=== PATIENT | female | born 2000 | race Caucasian/White ===

== ENCOUNTER 2019-10-05 18:45 | Inpatient (IN) | payer MEDICAID ==
[2019-10-05] MEDS ORDERED: Calcium Carbonate 500 MG Tab.Chew PO PRN (19:56)
[2019-10-05] MEDS ORDERED: Acetaminophen 325 MG Tab PO PRN (19:56)
[2019-10-05] MEDS ORDERED: Sodium Chloride 0.9% 10 ML Syringe FLUSH PRN (19:56)
[2019-10-05] MEDS ORDERED: Nalbuphine 10 MG/ML Syringe IVPUSH PRN (19:56)
[2019-10-05] MEDS ORDERED: Ondansetron 4 MG/2 ML SDV IVPUSH PRN (19:56)
[2019-10-05] MEDS ORDERED: Oxytocin/Lactated Ringers 10 UNIT/1,000 ML BAG IV SCH ×2 (20:00)
[2019-10-05] MEDS ORDERED: ePHEDrine 50 MG/ML SDV IVPUSH PRN (20:43)
[2019-10-05] MEDS ORDERED: diphenhydrAMINE 50 MG/ML SDV IVPUSH PRN (20:43)
[2019-10-05] MEDS ORDERED: fentaNYL 100 MCG/2 ML SDV EPIDUR PRN (20:43)
[2019-10-05] MEDS ORDERED: Bupivacaine/fentaNYL/NS 100 ML Bag EPIDUR PRN (20:43)
--- NOTE | 2019-10-05 20:58 | PCM.PREANE ---
Preanesthetic Assessment - Anesthesia/Transfusion/Family Hx Anesthesia History: No Prior Anesthesia Transfusion History: No Prior Transfusion(s) - Review of Systems General: No Symptoms Pulmonary: No Symptoms Cardiovascular: No Symptoms Gastrointestinal: No Symptoms Neurological: No Symptoms Other: Reports: None - Physical Assessment Height: 1.6 m Weight: 66.723 kg ASA Class: 2 Mental Status: Alert & Oriented x3 Dentition: Reports: Normal Dentition Thyro-Mental Finger Breadths: 3 Mouth Opening Finger Breadths: 3 ROM/Head Extension: Full Lungs: Clear to Auscultation, Normal Respiratory Effort Cardiovascular: Regular Rate, Regular Rhythm - Lab Values: Laboratory Last Values WBC 7.38 K/mm3 (3.98-10.04) 10/05/19 20:18 RBC 4.41 M/mm3 (3.98-5.22) 10/05/19 20:18 Hgb 12.1 gm/dl (11.2-15.7) 10/05/19 20:18 Hct 38.0 % (34.1-44.9) 10/05/19 20:18 MCV 86.2 fl (79.4-94.8) D 10/05/19 20:18 MCH 27.4 pg (25.6-32.2) 10/05/19 20:18 MCHC 31.8 g/dl (32.2-35.5) L 10/05/19 20:18 RDW Std Deviation 44.6 fL (36.4-46.3) 10/05/19 20:18 Plt Count 223 K/mm3 (182-369) 10/05/19 20:18 MPV 12.7 fl (9.4-12.3) H 10/05/19 20:18 Neut % (Auto) 70.5 % (34.0-71.1) 10/05/19 20:18 Lymph % (Auto) 20.5 % (19.3-51.7) 10/05/19 20:18 [place] % (Auto) 7.2 % (4.7-12.5) 10/05/19 20:18 Eos % (Auto) 0.5 (0.7-5.8) L 10/05/19 20:18 Baso % (Auto) 0.4 % (0.1-1.2) 10/05/19 20:18 Neut # (Auto) 5.20 K/mm3 (1.56-6.13) 10/05/19 20:18 Lymph # (Auto) 1.51 K/mm3 (1.18-3.74) 10/05/19 20:18 [place] # (Auto) 0.53 K/mm3 (0.24-0.36) H 10/05/19 20:18 Eos # (Auto) 0.04 K/mm3 (0.04-0.36) 10/05/19 20:18 Baso # (Auto) 0.03 K/mm3 (0.01-0.08) 10/05/19 20:18 Membrane Rupture Positive H 10/05/19 19:00 - Allergies Allergies/Adverse Reactions: Allergies Allergy/AdvReac Type Severity Reaction Status Date / Time No Known Allergies Allergy Verified 10/05/19 18:53 - Acknowledgements Anesthesia Type Planned: Epidural Pt an Appropriate Candidate for the Planned Anesthesia: Yes Alternatives and Risks of Anesthesia Discussed w Pt/Guardian: Yes Pt/Guardian Understands and Agrees with Anesthesia Plan: Yes PreAnesthesia Questionnaire - CURRENT (IN HOUSE) MEDS Current Meds: Current Medications Acetaminophen (Tylenol) 650 mg PO Q4H PRN PRN Reason: Pain (Mild 1-3) and fever Calcium Carbonate/Glycine (Tums) 1,000 mg PO Q2H PRN PRN Reason: Indigestion Diphenhydramine HCl (Benadryl) 25 mg IVPUSH Q6H PRN PRN Reason: pruritis Ephedrine Sulfate (Ephedrine Sulfate) 5 mg IVPUSH ASDIRECTED PRN PRN Reason: Hypotension Fentanyl (Sublimaze) 100 mcg EPIDUR Q3H PRN PRN Reason: Pain Fentanyl/Bupivacaine HCl (Fentanyl/Bupivacaine/Ns 2 Mcg-0.125% 100 Ml) 0 ml EPIDUR CONTINUOUS PRN PRN Reason: Pain Lactated Ringer's (Ringers, Lactated) 1,000 mls @ 100 mls/hr IV ASDIRECTED CUBA Oxytocin/Lactated Ringer's (Pitocin In Lr 10 Units/1,000 Ml) 10 unit in 1,000 mls @ 12 mls/hr IV TITRATE CUBA; Protocol Oxytocin/Lactated Ringer's (Pitocin In Lr 10 Units/1,000 Ml) 10 unit in 1,000 mls @ 500 mls/hr IV .CONTINUOUS CUBA Nalbuphine HCl (Nubain) 10 mg IVPUSH Q2H PRN PRN Reason: Pain Ondansetron HCl (Zofran) 4 mg IVPUSH Q4H PRN PRN Reason: Nausea/Vomiting Sodium Chloride (Saline Flush) 10 ml FLUSH ASDIRECTED PRN PRN Reason: Keep Vein Open
[2019-10-05] MEDS: Lactated Ringers 1,000 ML IV SCH ×2 (21:11→22:38)
--- NOTE | 2019-10-05 21:12 | PCM.HP.2 ---
<Sriram Bertrand - Last Filed: 10/05/19 20:20> H&P History of Present Illness - General Date of Service: 10/05/19 Admit Problem/Dx: Admission Diagnosis/Problem Admission Diagnosis/Problem Source of Information: Patient History Limitations: Reports: No Limitations - History of Present Illness Initial Comments - Free Text/Narative: Ms. Ginette Rios is a pleasant 19 yo F who is a and ANIA of 10/09/2019. She presents to L&D around 1830 on 10/05/2019 at an estimated gestational age of 39-3 stating "at around 1615 my water broke". She felt the fluid, emptied her bladder, but continued to feel fluid. She recalls this to be clear-gumaro fluid with a tinge of pink to it. She denied any pain or contractions at the time her water broke. She admits to continuing to finish her home-cleaning until 30 min before she presented to &D she started to feel "contractions like she hasn't felt before." She describes these contractions as "a lot of pressure much lower than she has felt in the past" as well as pain in her dorsal abdomen that radiates to her back". She currently rates her pain a 6/10. Denies any spotting, bleeding, changes in her vision. Denies any hx of asthma, hypertension, blood disorders. She presents tonight with partner, Lacho. Ms. Rios has been seeing Dr. Mcintyre for her care. Upon her last visit 10/01/2019 and denies having any concerns or conditions being monitored during her . She was measured by Dr. Mcintyre to be 2cm/85%/soft/mid-ant/ -3 station. Tonight upon presentation she was measured by Dr. Mcintyre at 4cm/ 95% / -2 station. Ms. Rios desires an epidural for her , consented with Francois Hughes CRNA and performed @3148. GBS: negative (-) Blood type: A+, negative Ab screen Allergies: none Current medications: vitamin, iron (admits not on a regular basis, takes them for anemia) Labs: - Hgb: 12.1 - Hct: 38.0 - Amnisure: Positive (+) - Related Data Allergies/Adverse Reactions: Allergies Allergy/AdvReac Type Severity Reaction Status Date / Time No Known Allergies Allergy Verified 10/05/19 18:53 H&P Review of Systems - Review of Systems: Review Of Systems: See Below General: Reports: No Symptoms, Other (As of the last month, feeling very hot at night - denies fevers) HEENT: Reports: No Symptoms Pulmonary: Reports: No Symptoms Cardiovascular: Reports: No Symptoms Gastrointestinal: Reports: Nausea (Pt admits to having heartburn during her ; otherwise negative) Genitourinary: Reports: No Symptoms Musculoskeletal: Reports: No Symptoms Skin: Reports: No Symptoms Psychiatric: Reports: No Symptoms Neurological: Reports: No Symptoms Hematologic/Lymphatic: Reports: No Symptoms Immunologic: Reports: No Symptoms Exam - Exam Exam: See Below - Vital Signs Weight: 66.723 kg - Exam General: Alert, Oriented HEENT: Mucosa Moist & [place], Pupils Equal, Pupils Reactive Neck: Supple, Trachea Midline, Full Range of Motion. No: Lymphadenopathy Lungs: Clear to Auscultation, Normal Respiratory Effort Cardiovascular: Regular Rate, Regular Rhythm (No M,R,G's), Normal S1, Normal S2 Back Exam: Normal Inspection Extremities: Normal Inspection, Normal Range of Motion, Non-Tender, No Pedal Edema, Normal Capillary Refill Peripheral Pulses: 2+: Radial (L) (normal), Radial (R) (normal), Posterior Tibial (L) (normal), Posterior Tibial (R) (normal) Skin: Warm, Dry, Intact Neurological: Cranial Nerves Intact Neuro Extensive - Mental Status: Alert, Oriented x3, Normal Mood/Affect, Normal Cognition Neuro Extensive - Motor, Sensory, Reflexes: CN II-XII Intact (grossly intact) Psychiatric: Alert, Normal Affect, Normal Mood - Patient Data Lab Results Last 24 hrs: Laboratory Results - last 24 hr 10/05/19 Range/Units 19:00 Membrane Rupture Positive H Problem List Initiated/Reviewed/Updated: Yes Orders Last 24hrs: Active Orders 24 hr Category Date Time Status Patient Status [ADT] Routine ADT 10/05/19 18:54 Active Patient Status [ADT] Routine ADT 10/05/19 19:57 Active Activity as Tolerated [RC] PFP Care 10/05/19 19:57 Active Communication Order [RC] ASDIRECTED Care 10/05/19 19:57 Active Heart Tones [RC] ASDIRECTED Care 10/05/19 19:58 Active Non Stress Test [RC] PER UNIT ROUTINE Care 10/05/19 18:54 Active Non Stress Test [RC] PER UNIT ROUTINE Care 10/05/19 19:57 Active Notify Provider [RC] PFP Care 10/05/19 19:57 Active Notify Provider [RC] PRN Care 10/05/19 19:57 Active Peripheral IV Care [RC] . DIRECTED Care 10/05/19 19:58 Active Up ad Stefani [RC] ASDIRECTED Care 10/05/19 18:55 Active Vital Signs [RC] PER UNIT ROUTINE Care 10/05/19 18:54 Active Vital Signs [RC] PER UNIT ROUTINE Care 10/05/19 19:57 Active Regular Diet [DIET] Diet 10/05/19 Breakfast Active CBC WITH AUTO DIFF [HEME] Stat Lab 10/05/19 19:56 Ordered RAPID PLASMA REAGIN,RPR [CHEM] Routine Lab 10/05/19 19:57 Ordered Acetaminophen [Tylenol] Med 10/05/19 19:56 Active 650 mg PO Q4H PRN Calcium Carbonate [Tums] Med 10/05/19 19:56 Active 1,000 mg PO Q2H PRN Lactated Ringers [Ringers, Lactated] 1,000 ml Med 10/05/19 20:00 Active IV ASDIRECTED Nalbuphine [Nubain] Med 10/05/19 19:56 Active 10 mg IVPUSH Q2H PRN Ondansetron [Zofran] Med 10/05/19 19:56 Active 4 mg IVPUSH Q4H PRN Oxytocin/Lactated Ringers [Pitocin in LR 10 Units/1,000 Med 10/05/19 20:00 Active ML] 10 unit in 1,000 ml IV .CONTINUOUS Oxytocin/Lactated Ringers [Pitocin in LR 10 Units/1,000 Med 10/05/19 20:00 Active ML] 10 unit in 1,000 ml IV TITRATE Sodium Chloride 0.9% [Saline Flush] Med 10/05/19 19:56 Active 10 ml FLUSH ASDIRECTED PRN Electronic Heart Tones Ext w TOCO [WOMSER] Oth 10/05/19 19:57 Ordered Routine Electronic Heart Tones Internal [WOMSER] Per Unit Oth 10/05/19 19:57 Ordered Routine Peripheral IV Insertion Adult [OM.PC] Routine Oth 10/05/19 19:57 Ordered Resuscitation Status Routine Resus Stat 10/05/19 18:53 Ordered Medication Orders Acetaminophen (Tylenol) 650 mg PO Q4H PRN PRN Reason: Pain (Mild 1-3) and fever Calcium Carbonate/Glycine (Tums) 1,000 mg PO Q2H PRN PRN Reason: Indigestion Lactated Ringer's (Ringers, Lactated) 1,000 mls @ 100 mls/hr IV ASDIRECTED CUBA Oxytocin/Lactated Ringer's (Pitocin In Lr 10 Units/1,000 Ml) 10 unit in 1,000 mls @ 12 mls/hr IV TITRATE CUBA; Protocol Oxytocin/Lactated Ringer's (Pitocin In Lr 10 Units/1,000 Ml) 10 unit in 1,000 mls @ 500 mls/hr IV .CONTINUOUS CUBA Nalbuphine HCl (Nubain) 10 mg IVPUSH Q2H PRN PRN Reason: Pain Ondansetron HCl (Zofran) 4 mg IVPUSH Q4H PRN PRN Reason: Nausea/Vomiting Sodium Chloride (Saline Flush) 10 ml FLUSH ASDIRECTED PRN PRN Reason: Keep Vein Open Assessment/Plan Comment:: Labor and Delivery - Mortality Measure Prognosis:: Good <Wesley Mcintyre - Last Filed: 10/06/19 02:13> H&P History of Present Illness - General Admit Problem/Dx: Admission Diagnosis/Problem Admission Diagnosis/Problem Ginette is 19-year-old 2 para 0010 white female with an ANIA of 2019 place her at 39-4/7 weeks gestational age who is admitted for spontaneous rupture membranes in early labor. Exam - Vital Signs Vital Signs: Last Vital Signs Temp 36.7 C 10/05/19 18:54 Pulse 113 H 10/05/19 18:54 Resp 16 10/05/19 18:54 BP 127/82 10/05/19 18:54 Pulse Ox 99 10/05/19 18:54 - Patient Data Lab Results Last 24 hrs: Laboratory Results - last 24 hr 10/05/19 10/05/19 10/05/19 Range/Units 19:00 20:18 20:18 WBC 7.38 (3.98-10.04) K/mm3 RBC 4.41 (3.98-5.22) M/mm3 Hgb 12.1 (11.2-15.7) gm/dl Hct 38.0 (34.1-44.9) % MCV 86.2 D (79.4-94.8) fl MCH 27.4 (25.6-32.2) pg MCHC 31.8 L (32.2-35.5) g/dl RDW Std Deviation 44.6 (36.4-46.3) fL Plt Count 223 (182-369) K/mm3 MPV 12.7 H (9.4-12.3) fl Neut % (Auto) 70.5 (34.0-71.1) % Lymph % (Auto) 20.5 (19.3-51.7) % [place] % (Auto) 7.2 (4.7-12.5) % Eos % (Auto) 0.5 L (0.7-5.8) Baso % (Auto) 0.4 (0.1-1.2) % Neut # (Auto) 5.20 (1.56-6.13) K/mm3 Lymph # (Auto) 1.51 (1.18-3.74) K/mm3 [place] # (Auto) 0.53 H (0.24-0.36) K/mm3 Eos # (Auto) 0.04 (0.04-0.36) K/mm3 Baso # (Auto) 0.03 (0.01-0.08) K/mm3 Membrane Rupture Positive H RPR Non-reactive (NONREACTIVE) Result Diagrams: 10/05/19 20:18 Sepsis Event Note - Focused Exam Vital Signs: Vital Signs Temp Pulse Resp BP Pulse Ox 10/05/19 18:54 36.7 C 113 H 16 127/82 99 Date Exam was Performed: 10/06/19 Time Exam was Performed: 02:10 Problem List Initiated/Reviewed/Updated: Yes Orders Last 24hrs: Active Orders 24 hr Category Date Time Status Patient Status [ADT] Routine ADT 10/05/19 18:54 Active Patient Status [ADT] Routine ADT 10/05/19 19:57 Active Activity as Tolerated [RC] PFP Care 10/05/19 19:57 Active Communication Order [RC] ASDIRECTED Care 10/05/19 19:57 Active Heart Tones [RC] ASDIRECTED Care 10/05/19 19:58 Active Notify Provider [RC] ASDIRECTED Care 10/05/19 20:43 Active Notify Provider [RC] PFP Care 10/05/19 19:57 Active Notify Provider [RC] PRN Care 10/05/19 19:57 Active Peripheral IV Care [RC] . DIRECTED Care 10/05/19 19:58 Active Up ad Stefani [RC] ASDIRECTED Care 10/05/19 18:55 Active Vaccines to be Administered [RC] PER UNIT ROUTINE Care 10/05/19 21:35 Active Vital Signs [RC] PER UNIT ROUTINE Care 10/05/19 19:57 Active Regular Diet [DIET] Diet 10/05/19 Breakfast Active Acetaminophen [Tylenol] Med 10/05/19 19:56 Active 650 mg PO Q4H PRN Bupivacaine/fentaNYL/NS [fentaNYL/Bupivacaine/NS 2 MCG- Med 10/05/19 20:43 Active 0.125% 100 ML] 0 ml EPIDUR CONTINUOUS PRN Calcium Carbonate [Tums] Med 10/05/19 19:56 Active 1,000 mg PO Q2H PRN Lactated Ringers [Ringers, Lactated] 1,000 ml Med 10/05/19 20:00 Active IV ASDIRECTED Nalbuphine [Nubain] Med 10/05/19 19:56 Active 10 mg IVPUSH Q2H PRN Ondansetron [Zofran] Med 10/05/19 19:56 Active 4 mg IVPUSH Q4H PRN Oxytocin/Lactated Ringers [Pitocin in LR 10 Units/1,000 Med 10/05/19 20:00 Active ML] 10 unit in 1,000 ml IV .CONTINUOUS Oxytocin/Lactated Ringers [Pitocin in LR 10 Units/1,000 Med 10/05/19 20:00 Active ML] 10 unit in 1,000 ml IV TITRATE Sodium Chloride 0.9% [Saline Flush] Med 10/05/19 19:56 Active 10 ml FLUSH ASDIRECTED PRN diphenhydrAMINE [Benadryl] Med 10/05/19 20:43 Active 25 mg IVPUSH Q6H PRN ePHEDrine [ePHEDrine sulfate] Med 10/05/19 20:43 Active 5 mg IVPUSH ASDIRECTED PRN fentaNYL [Sublimaze] Med 10/05/19 20:43 Active 100 mcg EPIDUR Q3H PRN Electronic Heart Tones Ext w TOCO [WOMSER] Oth 10/05/19 19:57 Ordered Routine Electronic Heart Tones Internal [WOMSER] Per Unit Oth 10/05/19 19:57 Ordered Routine Peripheral IV Insertion Adult [OM.PC] Routine Oth 10/05/19 19:57 Ordered Resuscitation Status Routine Resus Stat 10/05/19 18:53 Ordered Medication Orders Acetaminophen (Tylenol) 650 mg PO Q4H PRN PRN Reason: Pain (Mild 1-3) and fever Calcium Carbonate/Glycine (Tums) 1,000 mg PO Q2H PRN PRN Reason: Indigestion Diphenhydramine HCl (Benadryl) 25 mg IVPUSH Q6H PRN PRN Reason: pruritis Ephedrine Sulfate (Ephedrine Sulfate) 5 mg IVPUSH ASDIRECTED PRN PRN Reason: Hypotension Fentanyl (Sublimaze) 100 mcg EPIDUR Q3H PRN PRN Reason: Pain Last Admin: 10/05/19 21:20 Dose: 100 mcg Fentanyl/Bupivacaine HCl (Fentanyl/Bupivacaine/Ns 2 Mcg-0.125% 100 Ml) 0 ml EPIDUR CONTINUOUS PRN PRN Reason: Pain Last Admin: 10/05/19 21:22 Dose: 100 ml Lactated Ringer's (Ringers, Lactated) 1,000 mls @ 100 mls/hr IV ASDIRECTED CUBA Last Admin: 10/05/19 22:38 Dose: 100 mls/hr Infusion: 10/05/19 22:38 Dose: 100 mls/hr Admin: 10/05/19 21:11 Dose: 100 mls/hr Oxytocin/Lactated Ringer's (Pitocin In Lr 10 Units/1,000 Ml) 10 unit in 1,000 mls @ 12 mls/hr IV TITRATE CUBA; Protocol Oxytocin/Lactated Ringer's (Pitocin In Lr 10 Units/1,000 Ml) 10 unit in 1,000 mls @ 500 mls/hr IV .CONTINUOUS CUBA Nalbuphine HCl (Nubain) 10 mg IVPUSH Q2H PRN PRN Reason: Pain Ondansetron HCl (Zofran) 4 mg IVPUSH Q4H PRN PRN Reason: Nausea/Vomiting Last Admin: 10/05/19 22:39 Dose: 4 mg Sodium Chloride (Saline Flush) 10 ml FLUSH ASDIRECTED PRN PRN Reason: Keep Vein Open Assessment/Plan Comment:: 1. 39-4/7 week intrauterine , spontaneous rupture membranes, early active labor 2. Low risk 3. Desires epidural in labor 4. Group B strep negative 5. Patient plans to breast-feed. Plan: 1. Anticipate normal spontaneous vaginal delivery 2. Epidural in labor when necessary per patient desire 3. Routine labor care
[2019-10-05] MEDS ORDERED: Lidocaine 1% 2 ML ONE (21:27)
[2019-10-05] MEDS ORDERED: Lidocaine 1% 6 ML ONE (21:28)
[2019-10-05] MEDS ORDERED: Diphtheria,Pertussis(Acell),Tetanus Vaccine 0.5 ML Syringe IM ONE (21:35)
[2019-10-06] MEDS ORDERED: Lidocaine 1% 50 ML MDV ONE (01:36)
--- NOTE | 2019-10-06 02:20 | PCM.SN ---
- Free Text/Narrative Note: Delivery note: Ginette is 19-year-old 2 para 0010 white female with an ANIA of 2019 place her at 39-4/7 weeks gestational age who is admitted for spontaneous rupture membranes in early labor.Ginette is a 19-year-old 2 now para 1011 female who noted on the evening of 10/05/2019 with rupture membranes which occurred at approximately 1600 hrs. on the same day. She is at 39-3/7 weeks upon admission for early active labor. ANIA is set at 10/09/2019. Patient slowly but steadily progressed to complete cervical dilation by approximately oh 1230 hrs. she had an epidural placed for labor and analgesia. She delivered a viable, salguero, male infant named Chong at 0131 hrs. on . The baby weighed 3160 g (6 pounds 15.5 ounces), length of 20.0 inches and scores of 8 and 9. The baby delivered in a right occiput anterior position. The baby was placed on mom's abdomen immediately after delivery. Nose and mouth were bulb suctioned. Pitocin was increased to 500 mL/h to facilitate increase in uterine tone and decreased likelihood of bleeding. Patient had a right labial laceration and a small second-degree perineal laceration. The area of the laceration was infiltrated with lidocaine 1% approximately 15 mL total. These lacerations were both repaired with 3-0 Monocryl suture. Patient tolerated this very well. The placenta delivered in a Layne presentation, appeared intact and complete and was discarded per patient desire. Estimated blood loss was 100 mL. Patient plans to breast-feed. Duration: Good.
[2019-10-06] MEDS ORDERED: Acetaminophen 325 MG Tab PO PRN (02:32)
[2019-10-06] MEDS: Benzocaine/Menthol 20%-0.5% Spray 56 GM Canister TOP PRN (04:04)
[2019-10-06] MEDS: Docusate Sodium 100 MG Cap PO PRN ×2 (04:05→20:11)
[2019-10-06] MEDS: Ibuprofen 600 MG Tab PO PRN ×3 (04:05→20:11)
[2019-10-06] MEDS: Witch Hazel Medicated Pads 40/Jar TOP PRN (04:05)
--- NOTE | 2019-10-06 08:04 | PCM48HPAN ---
Post Anesthesia Note - EVALUATION WITHIN 48HRS OF ANESTHETIC Vital Signs in Normal Range: Yes Patient Participated in Evaluation: Yes Respiratory Function Stable: Yes Airway Patent: Yes Cardiovascular Function Stable: Yes Hydration Status Stable: Yes Pain Control Satisfactory: Yes Nausea and Vomiting Control Satisfactory: Yes Mental Status Recovered: Yes Vital Signs: Last Vital Signs Temp 98.1 F 10/05/19 18:54 Pulse 110 H 10/06/19 03:31 Resp 16 10/05/19 18:54 BP 93/45 L 10/06/19 03:31 Pulse Ox 98 10/05/19 21:18
[2019-10-06] MEDS: Prenatal Multivitamin with Calcium/Folic Acid/Iron Tab PO SCH (08:50)
[2019-10-07] MEDS: Ibuprofen 600 MG Tab PO PRN (05:07)
[2019-10-07] MEDS: Prenatal Multivitamin with Calcium/Folic Acid/Iron Tab PO SCH (08:29)
--- NOTE | 2019-10-07 08:55 | PCM.SN ---
- Free Text/Narrative Note: note: Patient is doing well in the period. Minimal lochia, voiding well, ambulated without problems. Nursing less than optimal at this time. Patient is afebrile, vital signs are stable Abdomen is flat, soft, uterus is below the umbilicus and is firm and nontender. Legs are nontender. Assessment: recovery going well. Plan: Routine care. Patient be discharged home within the next 24-48 hours.
[2019-10-07] MEDS: Witch Hazel Medicated Pads 40/Jar TOP PRN (14:36)
[2019-10-07] MEDS: Benzocaine/Menthol 20%-0.5% Spray 56 GM Canister TOP PRN (14:36)
--- NOTE | 2019-10-07 18:16 | PCM.DCSUM1 ---
Discharge Summary - Hospital Course Free Text/Narrative:: Ginette is 19-year-old 2 para 0010 white female with an ANIA of 2019 place her at 39-4/7 weeks gestational age who is admitted for spontaneous rupture membranes in early labor.Ginette is a 19-year-old 2 now para 1011 female who noted on the evening of 10/05/2019 with rupture membranes which occurred at approximately 1600 hrs. on the same day. She is at 39-3/7 weeks upon admission for early active labor. ANIA is set at 10/09/2019. Patient slowly but steadily progressed to complete cervical dilation by approximately oh 1230 hrs. she had an epidural placed for labor and analgesia. She delivered a viable, salguero, male infant named Chong at 0131 hrs. on . The baby weighed 3160 g (6 pounds 15.5 ounces), length of 20.0 inches and scores of 8 and 9. The baby delivered in a right occiput anterior position. The baby was placed on mom's abdomen immediately after delivery. Nose and mouth were bulb suctioned. Pitocin was increased to 500 mL/h to facilitate increase in uterine tone and decreased likelihood of bleeding. Patient had a right labial laceration and a small second-degree perineal laceration. The area of the laceration was infiltrated with lidocaine 1% approximately 15 mL total. These lacerations were both repaired with 3-0 Monocryl suture. Patient tolerated this very well. The placenta delivered in a Layne presentation, appeared intact and complete and was discarded per patient desire. Estimated blood loss was 100 mL. Patient plans to breast-feed. patient is done well. She is and doing well. She has had some difficulty with nursing but in general is going well. She wishes to continue. She is ready for discharge home. Diagnosis: Stroke: No - Discharge Data Discharge Date: 10/07/19 Discharge Disposition: Home, Self-Care 01 Condition: Good - Referral to Home Health Primary Care Physician: Wesley Mcintyre MD - Patient Instructions Diet: Regular Diet as Tolerated (Nursing diet with increase calories and calcium as recommended) Activity: As Tolerated (No intercourse or tampons until bleeding resolves) Driving: May Drive Today Showering/Bathing: May Shower (May take a shower) Notify Provider of: Fever, Increased Pain, Swelling and Redness, Nausea and/or Vomiting - Discharge Plan Home Medications: Home Meds Vit #76/Iron,Carb/Fa [Pnv 29-1 Tablet] 1 each PO DAILY 10/05/19 [ History] Acetaminophen [Tylenol] 650 mg PO Q4H PRN tablet 10/07/19 [Rx] Ibuprofen [Motrin] 600 mg PO Q4H PRN tablet 10/07/19 [Rx] Referrals: Wesley Mcintyre MD [Primary Care Provider] - (Return to [facility] weeks.) - Discharge Summary/Plan Comment DC Time >30 min.: No Discharge Summary/Plan Comment: Discharge instructions: 1. Discharge home 2. Diet, activity and follow-up discussed with patient. Recommend nursing diet with increased calories and calcium. 3. Precautions given concern increased pain, bleeding, temperature, signs/ symptoms of DVT/PE. 4. Medications per home medication was printed, discussed with and given to the patient. 5. Return to clinic-Dr. Mcintyre[facility] in 2 weeks. Diagnosis: Term -delivered Condition: Good - Patient Data Vitals - Most Recent: Last Vital Signs Temp 37.1 C 10/07/19 15:41 Pulse 109 H 10/07/19 15:41 Resp 16 10/07/19 15:41 BP 123/77 10/07/19 15:41 Pulse Ox 97 10/07/19 15:41 Weight - Most Recent: 66.723 kg I&O - Last 24 hours: Intake & Output 10/07/19 10/07/19 10/07/19 06:59 14:59 22:59 Intake Total 120 Balance 120 Med Orders - Current: Current Medications Acetaminophen (Tylenol) 650 mg PO Q4H PRN PRN Reason: mild pain or fever Benzocaine/Menthol (Dermoplast Pain Relief [place]) 0 gm TOP ASDIRECTED PRN PRN Reason: Perineal Comfort Measure Last Admin: 10/07/19 14:36 Dose: 1 canister Docusate Sodium (Colace) 100 mg PO BID PRN PRN Reason: Constipation Last Admin: 10/06/19 20:11 Dose: 100 mg Ibuprofen (Motrin) 600 mg PO Q4H PRN PRN Reason: Mild pain or fever Last Admin: 10/07/19 05:07 Dose: 600 mg Prenat Multivit/[place]/Iron/Folic Ac ( Plus Iron) 1 each PO DAILY CUBA Last Admin: 10/07/19 08:29 Dose: 1 each David Rubio (Tucks) 1 pad TOP ASDIRECTED PRN PRN Reason: Pain Last Admin: 10/07/19 14:36 Dose: 1 container Discontinued Medications Acetaminophen (Tylenol) 650 mg PO Q4H PRN PRN Reason: Pain (Mild 1-3) and fever Calcium Carbonate/Glycine (Tums) 1,000 mg PO Q2H PRN PRN Reason: Indigestion Diphenhydramine HCl (Benadryl) 25 mg IVPUSH Q6H PRN PRN Reason: pruritis Diphtheria/Tetanus/Acell Pertussis (Adacel) 0.5 ml IM .ONCE ONE Stop: 10/05/19 21:36 Ephedrine Sulfate (Ephedrine Sulfate) 5 mg IVPUSH ASDIRECTED PRN PRN Reason: Hypotension Fentanyl (Sublimaze) 100 mcg EPIDUR Q3H PRN PRN Reason: Pain Last Admin: 10/05/19 21:20 Dose: 100 mcg Fentanyl/Bupivacaine HCl (Fentanyl/Bupivacaine/Ns 2 Mcg-0.125% 100 Ml) 0 ml EPIDUR CONTINUOUS PRN PRN Reason: Pain Last Admin: 10/05/19 21:22 Dose: 100 ml Lactated Ringer's (Ringers, Lactated) 1,000 mls @ 100 mls/hr IV ASDIRECTED CUBA Last Admin: 10/05/19 22:38 Dose: 100 mls/hr Oxytocin/Lactated Ringer's (Pitocin In Lr 10 Units/1,000 Ml) 10 unit in 1,000 mls @ 12 mls/hr IV TITRATE CUBA; Protocol Oxytocin/Lactated Ringer's (Pitocin In Lr 10 Units/1,000 Ml) 10 unit in 1,000 mls @ 500 mls/hr IV .CONTINUOUS CUBA Last Admin: 10/06/19 01:35 Dose: 500 mls/hr Lidocaine HCl (Xylocaine-Mpf 1%) Confirm Administered Dose 2 mls @ as directed .ROUTE .STK-MED ONE Stop: 10/05/19 21:28 Lidocaine HCl (Xylocaine-Mpf 1%) Confirm Administered Dose 6 mls @ as directed .ROUTE .STK-MED ONE Stop: 10/05/19 21:29 Lidocaine HCl (Xylocaine 1%) Confirm Administered Dose 50 ml .ROUTE .VoxPopMe ONE Stop: 10/06/19 01:37 Last Admin: 10/06/19 01:40 Dose: 20 ml Nalbuphine HCl (Nubain) 10 mg IVPUSH Q2H PRN PRN Reason: Pain Ondansetron HCl (Zofran) 4 mg IVPUSH Q4H PRN PRN Reason: Nausea/Vomiting Last Admin: 10/05/19 22:39 Dose: 4 mg Sodium Chloride (Saline Flush) 10 ml FLUSH ASDIRECTED PRN PRN Reason: Keep Vein Open
== END 2019-10-07 19:10 | disposition home or self-care (01) | DRG 807 ==
LOC: JD.OB 18:45 → JD.OBCHECK 18:45 → JD.OB 19:57 → OBSVTOIN 10-06 01:31 → JD.OB 10-06 01:31
PROVIDERS: ADMIT Obstetrics & Gynecology; ATTEND Obstetrics & Gynecology
PROC: 10E0XZZ Delivery of Products of Conception, External Approach (ICD-10-PCS; principal; 2019-10-06)
PROC: 0KQM0ZZ Repair Perineum Muscle, Open Approach (ICD-10-PCS; 2019-10-06)
PROC: 3E0R3BZ Introduction of Anesthetic Agent into Spinal Canal, Percutaneous Approach (ICD-10-PCS; 2019-10-06)
PROC: 00HU33Z Insertion of Infusion Device into Spinal Canal, Percutaneous Approach (ICD-10-PCS; 2019-10-06)
DX: O70.1 Second degree perineal laceration during delivery (principal); Z37.0 Single live birth; Z3A.39 39 weeks gestation of pregnancy
CPT/HCPCS: 01967; 36415; 51702; 59025; 59409; 84112; 85025; 86592; A9270-GY; J2001; J2405; J2590; J3010; J7120

== ENCOUNTER 2021-04-20 08:57 | Inpatient (IN) | payer MEDICAID ==
[2021-04-20] MEDS ORDERED: Ondansetron 4 MG/2 ML SDV IVPUSH PRN (09:34)
[2021-04-20] MEDS ORDERED: Sodium Chloride 0.9% 10 ML Syringe FLUSH PRN (09:34)
[2021-04-20] MEDS ORDERED: Nalbuphine 10 MG/1 ML Vial IVPUSH PRN (09:34)
[2021-04-20] MEDS ORDERED: Citric Acid/Sodium Citrate Solution 30 ML Cup PO ONE (09:38)
[2021-04-20] MEDS ORDERED: Metoclopramide 10 MG/2 ML SDV IVPUSH ONE (09:38)
[2021-04-20] MEDS ORDERED: Azithromycin 500 MG in Sodium Chloride 0.9% 250 ML IV STA (09:41)
[2021-04-20] MEDS ORDERED: ceFAZolin 2 GM in Premix Bag 1 BAG IV ONE (09:43)
[2021-04-20] MEDS ORDERED: Lactated Ringers 1,000 ML IV SCH (09:45)
[2021-04-20] MEDS ORDERED: Oxytocin/Lactated Ringers 10 UNIT/1,000 ML BAG IV SCH ×3 (09:45→12:53)
[2021-04-20] MEDS ORDERED: Propofol 200 MG/20 ML SDV ONE (09:54)
[2021-04-20] MEDS ORDERED: fentaNYL 100 MCG/2 ML SDV ONE ×2 (10:02→10:13)
[2021-04-20] MEDS ORDERED: Succinylcholine/Sod PF 100 MG/5 ML SYRINGE IV ONE (10:02)
[2021-04-20] MEDS ORDERED: ceFAZolin 1 GM Vial ONE (10:04)
[2021-04-20] MEDS ORDERED: Oxytocin 10 Units/1 ML SDV ONE (10:04)
[2021-04-20] MEDS ORDERED: Ondansetron 4 MG/2 ML SDV ONE (10:05)
[2021-04-20] MEDS ORDERED: HYDROmorphone 0.5 MG/0.5 ML Syringe ONE ×2 (10:14→10:34)
[2021-04-20] MEDS ORDERED: Lactated Ringers 1,000 ML ONE (10:16)
[2021-04-20] MEDS ORDERED: Midazolam 1 MG/ML 2 ML SDV ONE (10:30)
[2021-04-20] MEDS ORDERED: Bupivacaine 0.5% 30 ML SDV ONE (10:35)
[2021-04-20] MEDS ORDERED: fentaNYL 100 MCG/2 ML SDV IVPUSH PRN (10:38)
[2021-04-20] MEDS ORDERED: HYDROmorphone 0.5 MG/0.5 ML Syringe IVPUSH PRN (10:38)
--- NOTE | 2021-04-20 11:17 | PCM.PREANE ---
Preanesthetic Assessment - Procedure Proposed Procedure: Emergency section - Anesthesia/Transfusion/Family Hx Anesthesia History: No Prior Anesthesia Transfusion History: No Prior Transfusion(s) - Review of Systems General: No Symptoms Pulmonary: No Symptoms Cardiovascular: No Symptoms Gastrointestinal: No Symptoms Neurological: No Symptoms Other: Reports: None - Physical Assessment Vital Signs: Last Vital Signs Temp 97.3 F 04/20/21 11:00 Pulse 71 04/20/21 11:00 Resp 12 04/20/21 11:00 BP 113/63 04/20/21 11:00 Pulse Ox 100 04/20/21 11:00 ASA Class: 2E Mental Status: Alert & Oriented x3 Airway Class: Mallampati = 2 Dentition: Reports: Normal Dentition Thyro-Mental Finger Breadths: 3 Mouth Opening Finger Breadths: 3 ROM/Head Extension: Full Lungs: Clear to Auscultation, Normal Respiratory Effort Cardiovascular: Regular Rate, Regular Rhythm - Lab Values: Laboratory Last Values WBC 7.16 K/mm3 (3.98-10.04) 04/20/21 09:45 RBC 3.64 M/mm3 (3.98-5.22) L 04/20/21 09:45 Hgb 11.0 gm/dl (11.2-15.7) L 04/20/21 09:45 Hct 33.9 % (34.1-44.9) L 04/20/21 09:45 MCV 93.1 fl (79.4-94.8) D 04/20/21 09:45 MCH 30.2 pg (25.6-32.2) 04/20/21 09:45 MCHC 32.4 g/dl (32.2-35.5) 04/20/21 09:45 RDW Std Deviation 47.2 fL (36.4-46.3) H 04/20/21 09:45 Plt Count 126 K/mm3 (182-369) L D 04/20/21 09:45 MPV 13.3 fl (9.4-12.3) H 04/20/21 09:45 Neut % (Auto) 72.9 % (34.0-71.1) H 04/20/21 09:45 Lymph % (Auto) 19.3 % (19.3-51.7) 04/20/21 09:45 [place] % (Auto) 6.6 % (4.7-12.5) 04/20/21 09:45 Eos % (Auto) 0.4 (0.7-5.8) L 04/20/21 09:45 Baso % (Auto) 0.1 % (0.1-1.2) 04/20/21 09:45 Neut # (Auto) 5.22 K/mm3 (1.56-6.13) 04/20/21 09:45 Lymph # (Auto) 1.38 K/mm3 (1.18-3.74) 04/20/21 09:45 [place] # (Auto) 0.47 K/mm3 (0.24-0.36) H 04/20/21 09:45 Eos # (Auto) 0.03 K/mm3 (0.04-0.36) L 04/20/21 09:45 Baso # (Auto) 0.01 K/mm3 (0.01-0.08) 04/20/21 09:45 Blood Type A POSITIVE 04/20/21 09:45 Gel Antibody Screen Negative 04/20/21 09:45 - Allergies Allergies/Adverse Reactions: Allergies Allergy/AdvReac Type Severity Reaction Status Date / Time No Known Allergies Allergy Verified 10/05/19 18:53 - Acknowledgements Anesthesia Type Planned: General Anesthesia Pt an Appropriate Candidate for the Planned Anesthesia: Yes Alternatives and Risks of Anesthesia Discussed w Pt/Guardian: Yes Pt/Guardian Understands and Agrees with Anesthesia Plan: Yes Additional Comments: Due to an extreme urgency of the procedure the assessment was done based on physician and nursing staff report. 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: - HOME MEDS Home Medications: Home Meds Vit #76/Iron,Carb/Fa [Pnv 29-1 Tablet] 1 each PO DAILY 10/05/19 [History] Acetaminophen [Tylenol] 650 mg PO Q4H PRN tablet 10/07/19 [Rx] Ibuprofen [Motrin] 600 mg PO Q4H PRN tablet 10/07/19 [Rx] - CURRENT (IN HOUSE) MEDS Current Meds: Current Medications Fentanyl (Fentanyl 100 Mcg/2 Ml Sdv) 100 mcg IVPUSH Q5M PRN PRN Reason: Pain Hydromorphone HCl (Hydromorphone 0.5 Mg/0.5 Ml Syringe) 0.5 mg IVPUSH Q10M PRN PRN Reason: Pain (severe 7-10) Oxytocin/Lactated Ringer's (Pitocin In Lr 10 Units/1,000 Ml) 10 unit in 1,000 mls @ 100 mls/hr IV .CONTINUOUS CUBA Oxytocin/Lactated Ringer's (Pitocin In Lr 10 Units/1,000 Ml) 10 unit in 1,000 mls @ 12 mls/hr IV TITRATE CUBA; Protocol Lactated Ringer's (Ringers, Lactated) 1,000 mls @ 100 mls/hr IV ASDIRECTED CUBA Nalbuphine HCl (Nalbuphine 10 Mg/1 Ml Vial) 10 mg IVPUSH Q2H PRN PRN Reason: Pain Ondansetron HCl (Ondansetron 4 Mg/2 Ml Sdv) 4 mg IVPUSH Q4H PRN PRN Reason: Nausea/Vomiting Sodium Chloride (Sodium Chloride 0.9% 10 Ml Syringe) 10 ml FLUSH ASDIRECTED PRN PRN Reason: Keep Vein Open Discontinued Medications Bupivacaine HCl (Bupivacaine 0.5% 30 Ml Sdv) Confirm Administered Dose 30 ml .ROUTE .STK-MED ONE Stop: 04/20/21 10:36 Cefazolin Sodium (Cefazolin 1 Gm Vial) Confirm Administered Dose 2 gm .ROUTE .STK-MED ONE Stop: 04/20/21 10:05 Citric Acid/Sodium Citrate (Citric Acid/Sodium Citrate Solution 30 Ml Cup) 30 ml PO ONETIME ONE Stop: 04/20/21 09:39 Fentanyl (Fentanyl 100 Mcg/2 Ml Sdv) Confirm Administered Dose 100 mcg .ROUTE .STK-MED ONE Stop: 04/20/21 10:03 Fentanyl (Fentanyl 100 Mcg/2 Ml Sdv) Confirm Administered Dose 100 mcg .ROUTE .STK-MED ONE Stop: 04/20/21 10:14 Hydromorphone HCl (Hydromorphone 0.5 Mg/0.5 Ml Syringe) Confirm Administered Dose 0.5 mg .ROUTE .STK-MED ONE Stop: 04/20/21 10:15 Hydromorphone HCl (Hydromorphone 0.5 Mg/0.5 Ml Syringe) Confirm Administered Dose 0.5 mg .ROUTE .STK-MED ONE Stop: 04/20/21 10:35 Azithromycin 500 mg/ Sodium (Chloride) 250 mls @ 250 mls/hr IV ONETIME STA Stop: 04/20/21 10:40 Cefazolin Sodium/Dextrose 2 gm (/ Premix) 50 mls @ 100 mls/hr IV ONETIME ONE Stop: 04/20/21 10:12 Lactated Ringer's (Ringers, Lactated) Confirm Administered Dose 1,000 mls @ as directed .ROUTE .STK-MED ONE Stop: 04/20/21 10:17 Metoclopramide HCl (Metoclopramide 10 Mg/2 Ml Sdv) 10 mg IVPUSH ONETIME ONE Stop: 04/20/21 09:39 Midazolam HCl (Midazolam 1 Mg/Ml 2 Ml Sdv) Confirm Administered Dose 2 mg .ROUTE .STK-MED ONE Stop: 04/20/21 10:31 Miscellaneous Medication (Phenylephrine Hcl In 0.9% Nacl 1 Mg/10 Ml Syringe) Confirm Administered Dose 1 mg .ROUTE .STK-MED ONE Stop: 04/20/21 10:12 Miscellaneous Medication (Phenylephrine Hcl In 0.9% Nacl 1 Mg/10 Ml Syringe) Confirm Administered Dose 1 mg .ROUTE .STK-MED ONE Stop: 04/20/21 10:22 Ondansetron HCl (Ondansetron 4 Mg/2 Ml Sdv) Confirm Administered Dose 8 mg .ROUTE .STK-MED ONE Stop: 04/20/21 10:06 Oxytocin (Oxytocin 10 Units/1 Ml Sdv) Confirm Administered Dose 20 unit .ROUTE .STK-MED ONE Stop: 04/20/21 10:05 Propofol (Propofol 200 Mg/20 Ml Sdv) Confirm Administered Dose 200 mg .ROUTE .STK-MED ONE Stop: 04/20/21 09:55
--- NOTE | 2021-04-20 11:17 | PCM.POSTAN ---
POST ANESTHESIA ASSESSMENT - MENTAL STATUS Mental Status: Somnolent - VITAL SIGNS Vital Signs: Last Vital Signs Temp 97.3 F 04/20/21 11:00 Pulse 71 04/20/21 11:00 Resp 12 04/20/21 11:00 BP 113/63 04/20/21 11:00 Pulse Ox 100 04/20/21 11:00 - RESPIRATORY Respiratory Status: Respiratory Rate WNL, Airway Patent, O2 Saturation Stable, Supplemental Oxygen - CARDIOVASCULAR CV Status: Pulse Rate WNL, Blood Pressure Stable - GASTROINTESTINAL GI Status: No Symptoms - PAIN Pain Score: 0 - POST OP HYDRATION Hydration Status: Adequate & Stable
--- NOTE | 2021-04-20 12:05 | PCM.LDHP ---
L&D History of Present Illness - General Date of Service: 04/20/21 Admit Problem/Dx: Patient Status Order with Admit Dx/Problem 04/20/21 09:35 Patient Status [ADT] Routine Admission Diagnosis/Problem Admission Diagnosis/Problem Source of Information: Patient History Limitations: Reports: No Limitations - History of Present Illness Introduction:: Ginette Rios is a 20-year-old -0-1-1 female at 39 weeks 6 days (ANIA 04/21/2021) by early with spontaneous rupture of membranes. She states that she had a large gush of fluid at around 7:30 AM and then about 15 minutes later started have contractions. After the contractions began she started having to have bright red bleeding coming from the vagina. She had not really felt baby move since her water had broken. She states that the contractions were several minutes apart when she was having them. They were not overly strong. Timing/Duration: Reports: sudden onset (With large gush of fluid that occurred at around 7:30 AM, with bleeding that occurred vaginally after the initial gush of fluid) Location, : Reports: Lower back, Pelvic Quality: Reports: Ache Severity: Mild Pain Score: 0 Associated Symptoms: Reports: vaginal bleeding, vaginal fluid. Denies: vaginal discharge Present Illness Comments:: Ginette Rios is a 20-year-old -0-1-1 female who presented at 39 weeks 6 days (ANIA 04/21/2021) with spontaneous rupture membranes and bright red bleeding vaginally. She had routine care with Dr. Mcintyre starting at 35 weeks gestational age after having transfer of care from [place]. She denies any problems or issues with this . She had a normal anatomy ultrasound. She declined Tdap vaccine during . Her care has been with Dr. Mcintyre and has been uncomplicated. 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 G1: 12/27/2018: SAB, 10 weeks G2: 10/06/2019, 39 weeks 4 days, , 6 pounds 15 ounces, male infant, no complications G3: Current labs Blood type: A+ Antibody screen: Negative First trimester hematocrit/hemoglobin: 36.2%/12.2 on 11/21/2020 Platelets: 256 on 11/22/2019 Urine culture: Negative Rubella status: Immune Hepatitis B surface antigen: Negative RPR: Negative Hepatitis C: Negative HIV: Negative Gonorrhea: Negative Chlamydia: Negative Anatomy ultrasound: Normal anatomy, no abnormalities, no evidence of placenta previa One hour glucose tolerance test: 108 Second trimester hematocrit/hemoglobin: 35.5%/12.3 on 01/18/2021 Platelets: 235 on 01/18/2021 GBS status: Negative - Related Data Allergies/Adverse Reactions: Allergies Allergy/AdvReac Type Severity Reaction Status Date / Time No Known Allergies Allergy Verified 10/05/19 18:53 Home Medications: Home Meds Vit #76/Iron,Carb/Fa [Pnv 29-1 Tablet] 1 each PO DAILY 10/05/19 [History] Acetaminophen [Tylenol] 650 mg PO Q4H PRN tablet 10/07/19 [Rx] Past Medical History - Past Health History Medical/Surgical History: Denies 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/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 History 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: : 3 Para: 1 Neurological History: Reports: Migraines Social & Family History - Family History Family Medical History: No Pertinent Family History - Tobacco Use Tobacco Use Status *Q: Never Tobacco User Tobacco Use Within Last Twelve Months: No - Tobacco Core Measures Tobacco Use/Smoking Within Last 30 Days: No Smokeless Tobacco Use in Last 30 Days: No - Alcohol Use Alcohol Use History: No - Recreational Drug Use Recreational Drug Use: No Drug Use in Last 12 Months: No - Living Situation & Occupation Living situation: Reports: Single, with Significant Other, with Family H&P Review of Systems - Review of Systems: Review Of Systems: See Below General: Denies: Fever, Chills, Malaise, Weakness, Fatigue HEENT: Denies: Headaches, Rhinitis, Post Nasal Drip, Sinus Congestion, Sore Throat Pulmonary: Denies: Shortness of Breath, Wheezing, Pleuritic Chest Pain, Cough Cardiovascular: Denies: Chest Pain, Palpitations, Dyspnea on Exertion, Orthopnea Gastrointestinal: Reports: Nausea, Vomiting. Denies: Abdominal Pain, Constipation, Diarrhea Genitourinary: Denies: Dysuria, Frequency, Burning, Pain, Urgency Skin: Denies: Rash, Lesions Psychiatric: Denies: Depression, Anxiety L&D Exam - Exam Exam: See Below - Vital Signs Vital Signs: Last Vital Signs Temp 36.4 C 04/20/21 11:43 Pulse 65 04/20/21 11:43 Resp 10 L 04/20/21 11:43 BP 118/78 04/20/21 11:43 Pulse Ox 100 04/20/21 11:43 - OB Specific Contraction Duration (sec): 3-5 Contraction Frequency (min): 60-75 Contraction Intensity: Moderate to Strong Movement: Active Heart Tones: Present Heart Tones per Min: 130 (Recurrent late decelerations down to the 60s with prolongation of the decelerations with each, no accelerations) Heart Rate (FHR) Variability: Moderate (6-25 bpm) Presentation: Vertex - Santos Score Satnos Score Cervix Position: Anterior Santos Score Consistency: Soft Santos Score Effacement: >80% (100%) Santos Score Dilation: > 5 cm (5) Santos Score 's Station: -3 Santos Score Total: 10 - Exam General: Alert, Oriented HEENT: EOMI Neck: Supple, Trachea Midline Lungs: Clear to Auscultation, Normal Respiratory Effort Cardiovascular: Regular Rate, Regular Rhythm GI/Abdominal Exam: Soft, Non-Tender, No Distention, Other (Gravid). No: Guarding, Rigid, Rebound Genitourinary: Normal external exam, Vaginal bleeding (Moderate amount of dark red and bright red blood coming from the vagina) Extremities: Non-Tender, No Pedal Edema Skin: Warm, Dry, Intact Psychiatric: Alert, Normal Affect, Normal Mood - Patient Data Lab Results Last 24 hrs: Laboratory Results - last 24 hr 04/20/21 04/20/21 Range/Units 09:45 09:45 WBC 7.16 (3.98-10.04) K/mm3 RBC 3.64 L (3.98-5.22) M/mm3 Hgb 11.0 L (11.2-15.7) gm/dl Hct 33.9 L (34.1-44.9) % MCV 93.1 D (79.4-94.8) fl MCH 30.2 (25.6-32.2) pg MCHC 32.4 (32.2-35.5) g/dl RDW Std Deviation 47.2 H (36.4-46.3) fL Plt Count 126 L D (182-369) K/mm3 MPV 13.3 H (9.4-12.3) fl Neut % (Auto) 72.9 H (34.0-71.1) % Lymph % (Auto) 19.3 (19.3-51.7) % [place] % (Auto) 6.6 (4.7-12.5) % Eos % (Auto) 0.4 L (0.7-5.8) Baso % (Auto) 0.1 (0.1-1.2) % Neut # (Auto) 5.22 (1.56-6.13) K/mm3 Lymph # (Auto) 1.38 (1.18-3.74) K/mm3 [place] # (Auto) 0.47 H (0.24-0.36) K/mm3 Eos # (Auto) 0.03 L (0.04-0.36) K/mm3 Baso # (Auto) 0.01 (0.01-0.08) K/mm3 Blood Type A POSITIVE Gel Antibody Screen Negative Result Diagrams: 04/20/21 09:45 - Problem List (1) 39 weeks gestation of SNOMED Code(s): 53832444 ICD Code: Z3A.39 - 39 WEEKS GESTATION OF Status: Acute Current Visit: Yes (2) Vaginal bleeding in SNOMED Code(s): 28086398336079424 ICD Code: O46.90 - ANTEPARTUM HEMORRHAGE, UNSPECIFIED, UNSPECIFIED TRIMESTER Status: Acute Current Visit: Yes Problem List Initiated/Reviewed/Updated: Yes Orders Last 24hrs: Active Orders 24 hr Category Date Time Status Patient Status [ADT] Routine ADT 04/20/21 09:35 Active Activity as Tolerated [RC] PFP Care 04/20/21 09:35 Active Communication Order [RC] ASDIRECTED Care 04/20/21 09:35 Active Communication Order [RC] ASDIRECTED Care 04/20/21 10:38 Active Cooling Warming Measures [RC] ASDIRECTED Care 04/20/21 10:38 Active Heart Tones [RC] ASDIRECTED Care 04/20/21 09:35 Active Non Stress Test [RC] PER UNIT ROUTINE Care 04/20/21 09:35 Active Notify Provider [RC] PFP Care 04/20/21 09:35 Active Notify Provider [RC] PRN Care 04/20/21 09:35 Active Oxygen Therapy [RC] ASDIRECTED Care 04/20/21 10:38 Active Peripheral IV Care [RC] . DIRECTED Care 04/20/21 09:35 Active Procedure Site Prep Instruct [RC] ASDIRECTED Care 04/20/21 09:43 Active Pulse Oximetry [RC] ASDIRECTED Care 04/20/21 10:38 Active Pump Management, Intrathecal [RC] ASDIRECTED Care 04/20/21 09:35 Active Urinary Catheter Assessment [RC] ASDIRECTED Care 04/20/21 09:34 Active Verify Patient Consent Obtain [RC] PER UNIT ROUTINE Care 04/20/21 09:43 Active Vital Signs [RC] PER UNIT ROUTINE Care 04/20/21 09:35 Active Vital Signs [RC] Q15M Care 04/20/21 10:38 Active Regular Diet [DIET] Diet 04/20/21 Lunch Active CORONAVIRUS COVID-19 ELIAN [MOLEC] Stat Lab 04/20/21 11:00 Received HEP C VIRUS AB [REF] Routine Lab 04/20/21 09:45 Received RAPID PLASMA REAGIN,RPR [CHEM] Routine Lab 04/20/21 09:45 Received HYDROmorphone [Dilaudid] Med 04/20/21 10:38 Active 0.5 mg IVPUSH Q10M PRN Lactated Ringers [Ringers, Lactated] 1,000 ml Med 04/20/21 09:45 Active IV ASDIRECTED Nalbuphine [Nubain] Med 04/20/21 09:34 Active 10 mg IVPUSH Q2H PRN Ondansetron [Zofran] Med 04/20/21 09:34 Active 4 mg IVPUSH Q4H PRN Oxytocin/Lactated Ringers [Pitocin in LR 10 Units/1,000 Med 04/20/21 09:45 Active ML] 10 unit in 1,000 ml IV .CONTINUOUS Oxytocin/Lactated Ringers [Pitocin in LR 10 Units/1,000 Med 04/20/21 09:45 Active ML] 10 unit in 1,000 ml IV TITRATE Sodium Chloride 0.9% [Saline Flush] Med 04/20/21 09:34 Active 10 ml FLUSH ASDIRECTED PRN fentaNYL [Sublimaze] Med 04/20/21 10:38 Active 100 mcg IVPUSH Q5M PRN Electronic Heart Tones Ext w TOCO [WOMSER] Oth 04/20/21 09:35 Ordered Routine Electronic Heart Tones Internal [WOMSER] Per Unit Oth 04/20/21 09:35 Ordered Routine Peripheral IV Insertion Adult [OM.PC] Routine Oth 04/20/21 09:35 Ordered Schedule Procedure [COMM] Per Unit Routine Oth 04/20/21 09:43 Ordered Resuscitation Status Routine Resus Stat 04/20/21 09:34 Ordered Medication Orders Fentanyl (Fentanyl 100 Mcg/2 Ml Sdv) 100 mcg IVPUSH Q5M PRN PRN Reason: Pain Hydromorphone HCl (Hydromorphone 0.5 Mg/0.5 Ml Syringe) 0.5 mg IVPUSH Q10M PRN PRN Reason: Pain (severe 7-10) Oxytocin/Lactated Ringer's (Pitocin In Lr 10 Units/1,000 Ml) 10 unit in 1,000 mls @ 100 mls/hr IV .CONTINUOUS CUBA Oxytocin/Lactated Ringer's (Pitocin In Lr 10 Units/1,000 Ml) 10 unit in 1,000 mls @ 12 mls/hr IV TITRATE CUBA; Protocol Lactated Ringer's (Ringers, Lactated) 1,000 mls @ 100 mls/hr IV ASDIRECTED CUBA Last Admin: 04/20/21 11:00 Dose: 100 mls/hr Documented by: ADEN Nalbuphine HCl (Nalbuphine 10 Mg/1 Ml Vial) 10 mg IVPUSH Q2H PRN PRN Reason: Pain Ondansetron HCl (Ondansetron 4 Mg/2 Ml Sdv) 4 mg IVPUSH Q4H PRN PRN Reason: Nausea/Vomiting Sodium Chloride (Sodium Chloride 0.9% 10 Ml Syringe) 10 ml FLUSH ASDIRECTED PRN PRN Reason: Keep Vein Open Assessment/Plan Comment:: Ginette Rios is a 20-year-old -0-1-1 female at 39 weeks 6 days with intolerance of labor in the setting of heavy vaginal bleeding with uncertain cause Attempt was made to place scalp electrode but this was unsuccessful due to head not being well engaged. With attempted placement there was additional dark red bleeding coming from the vagina. Infant was noted to have decelerations into the 60s to 70s that were lasting 1 to 3 minutes at a time. The cervix was dilated to 5 cm. Due to the amount of vaginal bleeding and intolerance of labor decision was made to proceed with emergency stat section. Patient had placement of a Luna catheter due to emergent need for section Admit to inpatient after section Patient with IV and have Lactated Ringer's at 125 ml/hr SCDs for DVT prophylaxis if able Nothing by mouth Activity as tolerated Plan for general anesthesia with endotracheal tube due to emergent nature of the case for anesthesia CBC, RPR and type and screen collected prior to surgery Plans to [breast-feed] after delivery Plan for [Ancef] [2 g] IV and azithromycin 500 mg IV for antibiotic prophylaxis prior to surgery Patient consented in the room for section prior to decision for surgery. This was done due to increased risk for need for section before patient had prolonged decelerations that were noted Of note, this H&P was obtained prior to the section but not written until after the section was performed Max Rausch M.D. 1:05 PM 04/20/2021
[2021-04-20] MEDS ORDERED: Magnesium Hydroxide 400 MG/5 ML Susp 30 ML Cup PO PRN (12:53)
[2021-04-20] MEDS ORDERED: Dextrose 5%-Lactated Ringers 1,000 ML IV SCH (12:53)
[2021-04-20] MEDS ORDERED: ePHEDrine 50 MG/ML SDV IVPUSH PRN (12:53)
[2021-04-20] MEDS ORDERED: Naloxone 0.4 MG/ML SDV IVPUSH PRN (12:53)
[2021-04-20] MEDS ORDERED: diphenhydrAMINE 50 MG/ML SDV IVPUSH PRN (12:53)
--- NOTE | 2021-04-20 13:10 | PCM.OPNOTE ---
- General Post-Op/Procedure Note Date of Surgery/Procedure: 04/20/21 Operative Procedure(s): Emergency section with delivery of Findings: Live male infant delivered in vertex presentation at 09:59. weight of 3040 g (6 pounds 11.2 ounces). Apgars were 7 and 9. Grossly normal-appearing uterus, fallopian tubes and ovaries bilaterally after procedure. No injuries were noted after the procedure with careful inspection performed of the bladder to ensure that there was no injury due to the emergent nature of the case. Pre Op Diagnosis: Heavy vaginal bleeding with recurrent deep decelerations of heart rate, intolerance of labor Post-Op Diagnosis: Same with placental abruption Anesthesia Technique: General ET Tube Primary Surgeon: Max Rausch Anesthesia Provider: Francois Leger Reason Materials Engineering Technician Was Necessary: Patient safety and reduction of morbidity and mortality Role of Materials Engineering Technician: Retraction for visualization Pathology: None Fluid Replacement, Intraop: 1,100 Output, Urine Amount: 100 EBL in mLs: 700 Complications: Stat delivery due to heart pattern Condition: Good Free Text/Narrative:: Intake & Output 04/19/21 04/20/21 04/20/21 22:59 06:59 14:59 Intake Total 1000 Output Total 206 Balance 794 Procedure in Detail: The patient was seen L&D room #29 and the risks, benefits and complications were discussed with the patient prior to decision for section but with the heavy vaginal bleeding she had been consented for possible section. Attempt was made to place a scalp electrode due to difficulty with monitoring the infant but this was unsuccessful. She had additional heavy bleeding with dark red and bright red blood. At this time there was prolonged decelerations down to the 60s and decision was made to proceed with section. A Luna catheter was placed in labor and delivery prior to going back to the operating room the patient was taken to operating room #1. A Time Out was held and the patient was identified using 2 identifiers and the procedure was confirmed. The patient was placed in dorsal supine position with leftward tilt. General anesthesia with endotracheal tube was inserted without difficulty. She was given 2 g Ancef and 500 mg azithromycin for antibiotic prophylaxis. The patient was prepped with iodine over the abdomen. A drape was placed over the abdomen. Once patient had been induced for general anesthesia with endotracheal tube a Pfannenstiel skin incision was made at 09:58 and carried down through the subcutaneous tissue to the fascia with the scapel. The fascia was cut in the midline using a scalpel and the fascial incision was extended transversely with blunt traction. The peritoneum was identified and entered bluntly. Blunt force traction was used to widen the incision into the abdominal cavity. The bladder blade was inserted and the lower uterine segment was identified. A low transverse uterine incision was made sharply with a scalpel and extended laterally bluntly. The infant's head was brought to the uterine incision, the bladder blade was removed and the was delivered atraumatically. On 04/20/2021 a live male was delivered in vertex position at 09:59, wt of 3040 grams, 6 pounds and 11.2 ounces. APGARS were 7 & 9. The nose and mouth were suctioned with bulb suction, the cord was doubly clamped and cut and infant was transferred to the awaiting warehouse manager, Dr. Andino The placenta was removed intact and appeared to have placental abruption with large clot behind the placenta in the uterine wall with a three vessel cord. The uterus was exteriorized and the uterine cavity was cleaned using lap sponges. The hysterotomy was closed with a running locked suture of 0-Vicryl. A second suture of 0-Vicryl was used to imbricate the hysterotomy. The hysterotomy was noted to have small amount of bleeding to the left of the midline and a [id number] suture with 0 Vicryl was placed and hemostasis was achieved. The uterus, tubes and ovaries appeared overall normal. The uterus was then returned into the abdominal cavity. The hysterotomy was noted to remain hemostatic inside the abdominal cavity. At this time inspection was performed of the entire abdomen and pelvis to ensure that there was not any injury due to the emergent nature of the case. There was no injury that was noted at this time. There was laceration of the left abdominal rectus muscle and this was repaired with a box suture of 3-0 Monocryl. No additional bleeding was noted at this time the fascia was noted to be hemostatic and the fascia was then reapproximated with running sutures of 0-Vicryl. The skin was reapproximated using 4-0 Monocryl and Steri-strips were applied over the incision. Patient was awoken from general anesthesia and taken to the recovery room for further resuscitation. Instrument, sponge, and needle counts were correct prior to the abdominal closure and at the conclusion of the case. Max Rausch MD 1:21 PM 04/20/2021
[2021-04-20] MEDS: Ketorolac 30 MG/ML SDV IVPUSH SCH ×2 (14:49→20:47)
[2021-04-20] MEDS: Acetaminophen/oxyCODONE 325-5 MG Tab PO PRN ×2 (17:01→23:48)
[2021-04-20] MEDS: Docusate Sodium 100 MG Cap PO SCH (20:46)
[2021-04-21] MEDS: Ketorolac 30 MG/ML SDV IVPUSH SCH (03:00)
--- NOTE | 2021-04-21 08:29 | PCM48HPAN ---
Post Anesthesia Note - EVALUATION WITHIN 48HRS OF ANESTHETIC Vital Signs in Normal Range: Yes Patient Participated in Evaluation: Yes Respiratory Function Stable: Yes Airway Patent: Yes Cardiovascular Function Stable: Yes Hydration Status Stable: Yes Pain Control Satisfactory: Yes Nausea and Vomiting Control Satisfactory: Yes Mental Status Recovered: Yes Vital Signs: Last Vital Signs Temp 98.6 F 04/21/21 05:12 Pulse 97 04/21/21 05:12 Resp 14 04/21/21 05:12 BP 128/72 04/21/21 05:12 Pulse Ox 95 04/21/21 05:12 - COMMENTS/OBSERVATIONS Free Text/Narrative:: No apparent anesthesia complications noted.
[2021-04-21] MEDS: Prenatal Multivitamin with Calcium/Folic Acid/Iron Tab PO SCH (09:06)
[2021-04-21] MEDS: Acetaminophen/oxyCODONE 325-5 MG Tab PO PRN ×3 (09:06→23:08)
--- NOTE | 2021-04-21 09:15 | PCM.SN.2 ---
- Free Text/Narrative Note: Post Operative Progress Note POD #1 Subjective: Doing well overall. Ambulating without difficulty. Lochia minimal. Luna draining clear urine prior to removal earlier this morning. Patient has not urinated since removal of the catheter. Has not felt the urge to urinate. Passing flatus. Tolerating regular diet without nausea or vomiting. Pain controlled with oral medications and Toradol overnight. Breast-feeding with formula supplementation with minimal difficulty. Denies any lightheadedness, di zziness or shortness of breath with ambulation. Objective: Vitals: Vital Signs - 24 hr 04/20/21 04/20/21 04/20/21 10:50 11:00 11:15 Temperature Temperature [ 36.6 C 36.3 C 36.1 C Temporal] Pulse, Peripheral Pulse, 79 71 90 Peripheral [ Right Carotid] Respiratory 11 L 12 16 Rate Blood Pressure Blood Pressure 108/64 113/63 113/63 [Right Upper Arm] O2 Sat by Pulse 100 100 100 Oximetry O2 Sat by Pulse 100 Oximetry [ Nasal Cannula] 04/20/21 04/20/21 04/20/21 11:30 11:43 12:05 Temperature 36.1 C Temperature [ 36.4 C 36.4 C Temporal] Pulse, Peripheral Pulse, 73 65 Peripheral [ Right Carotid] Respiratory 13 10 L 15 Rate Blood Pressure Blood Pressure 112/68 118/78 [Right Upper Arm] O2 Sat by Pulse 100 100 Oximetry O2 Sat by Pulse Oximetry [ Nasal Cannula] 04/20/21 04/20/21 04/20/21 12:06 12:09 12:33 Temperature Temperature [ Temporal] Pulse, 79 81 Peripheral Pulse, Peripheral [ Right Carotid] Respiratory Rate Blood Pressure 141/110 H 99/64 138/99 H Blood Pressure [Right Upper Arm] O2 Sat by Pulse 100 100 Oximetry O2 Sat by Pulse Oximetry [ Nasal Cannula] 04/20/21 04/20/21 04/20/21 12:36 12:53 13:02 Temperature Temperature [ 36.2 C Temporal] Pulse, 88 89 Peripheral Pulse, 96 Peripheral [ Right Carotid] Respiratory 16 Rate Blood Pressure 92/54 L Blood Pressure 110/62 [Right Upper Arm] O2 Sat by Pulse 100 100 Oximetry O2 Sat by Pulse Oximetry [ Nasal Cannula] 04/20/21 04/20/21 04/20/21 13:31 14:01 14:31 Temperature Temperature [ Temporal] Pulse, 99 95 102 H Peripheral Pulse, Peripheral [ Right Carotid] Respiratory Rate Blood Pressure 117/85 120/77 127/66 Blood Pressure [Right Upper Arm] O2 Sat by Pulse 100 99 99 Oximetry O2 Sat by Pulse Oximetry [ Nasal Cannula] 04/20/21 04/20/21 04/20/21 16:00 16:25 22:12 Temperature 36.7 C 37.2 C Temperature [ 36.6 C Temporal] Pulse, 100 99 Peripheral Pulse, 88 Peripheral [ Right Carotid] Respiratory 15 15 14 Rate Blood Pressure 124/82 132/71 Blood Pressure 100/62 [Right Upper Arm] O2 Sat by Pulse 100 99 97 Oximetry O2 Sat by Pulse Oximetry [ Nasal Cannula] 04/21/21 04/21/21 00:25 05:12 Temperature 37.2 C 37.0 C Temperature [ Temporal] Pulse, 95 97 Peripheral Pulse, Peripheral [ Right Carotid] Respiratory 14 14 Rate Blood Pressure 125/74 128/72 Blood Pressure [Right Upper Arm] O2 Sat by Pulse 94 L 95 Oximetry O2 Sat by Pulse Oximetry [ Nasal Cannula] Physical Exam General: Alert and oriented, no acute distress Lungs: Clear to auscultation bilaterally Heart: Regular rate and rhythm Abdomen: Soft, minimal appropriate tenderness, non-distended, fundus midline, nontender and at the umbilicus Incision: Clean, dry and intact, no erythema, bleeding or drainage with Steri- Strips in place Extremities: No edema in bilateral lower extremities, no calf tenderness bilaterally Labs: Laboratory Results - last 24 hr 04/20/21 04/20/21 04/20/21 Range/Units 09:45 09:45 09:45 WBC 7.16 (3.98-10.04) K/mm3 RBC 3.64 L (3.98-5.22) M/mm3 Hgb 11.0 L (11.2-15.7) gm/dl Hct 33.9 L (34.1-44.9) % MCV 93.1 D (79.4-94.8) fl MCH 30.2 (25.6-32.2) pg MCHC 32.4 (32.2-35.5) g/dl RDW Std Deviation 47.2 H (36.4-46.3) fL Plt Count 126 L D (182-369) K/mm3 MPV 13.3 H (9.4-12.3) fl Neut % (Auto) 72.9 H (34.0-71.1) % Lymph % (Auto) 19.3 (19.3-51.7) % [place] % (Auto) 6.6 (4.7-12.5) % Eos % (Auto) 0.4 L (0.7-5.8) Baso % (Auto) 0.1 (0.1-1.2) % Neut # (Auto) 5.22 (1.56-6.13) K/mm3 Lymph # (Auto) 1.38 (1.18-3.74) K/mm3 [place] # (Auto) 0.47 H (0.24-0.36) K/mm3 Eos # (Auto) 0.03 L (0.04-0.36) K/mm3 Baso # (Auto) 0.01 (0.01-0.08) K/mm3 Manual Slide Review RPR Non-reactive (NONREACTIVE) SARS-CoV-2 RNA (ELIAN) (NEGATIVE) Blood Type A POSITIVE Gel Antibody Screen Negative 04/20/21 04/20/21 04/21/21 Range/Units 11:00 14:32 05:33 WBC 13.16 H 9.01 (3.98-10.04) K/mm3 RBC 2.99 L 2.57 L (3.98-5.22) M/mm3 Hgb 9.1 L D 7.7 L (11.2-15.7) gm/dl Hct 27.9 L 24.3 L (34.1-44.9) % MCV 93.3 94.6 (79.4-94.8) fl MCH 30.4 30.0 (25.6-32.2) pg MCHC 32.6 31.7 L (32.2-35.5) g/dl RDW Std Deviation 47.0 H 47.6 H (36.4-46.3) fL Plt Count 96 L 92 L (182-369) K/mm3 MPV 13.0 H 12.7 H (9.4-12.3) fl Neut % (Auto) 88.9 H 75.6 H (34.0-71.1) % Lymph % (Auto) 7.8 L 18.0 L (19.3-51.7) % [place] % (Auto) 2.9 L 5.4 (4.7-12.5) % Eos % (Auto) 0 L 0.6 L (0.7-5.8) Baso % (Auto) 0.1 0.1 (0.1-1.2) % Neut # (Auto) 11.70 H 6.81 H (1.56-6.13) K/mm3 Lymph # (Auto) 1.03 L 1.62 (1.18-3.74) K/mm3 [place] # (Auto) 0.38 H 0.49 H (0.24-0.36) K/mm3 Eos # (Auto) 0.00 L 0.05 (0.04-0.36) K/mm3 Baso # (Auto) 0.01 0.01 (0.01-0.08) K/mm3 Manual Slide Review Abnormal smear RPR (NONREACTIVE) SARS-CoV-2 RNA (ELIAN) Negative (NEGATIVE) Blood Type Gel Antibody Screen ASSESSMENT: 20-year-old female -0-1-2 s/p emergent primary section POD #1 for placental abruption and intolerance of labor PLAN: Doing well Breast-feeding with formula supplementation with minimal difficulty. Assist as needed Incision healing well. Continue to keep clean and dry. Lochia minimal. Continue to monitor for appropriate lochia. Continue routine post-operative care Hemoglobin this morning down to 7.7 after being at 9.1 in the afternoon of POD #0. No significant difficulty with ambulation and denies any lightheadedness or dizziness. Denies any shortness of breath or chest pain. Vitals overall stable and no evidence of hypotension or tachycardia Anticipate discharge home tomorrow if stable for discharge Max Rausch MD 9:17 AM 04/21/2021
[2021-04-21] MEDS: Docusate Sodium 100 MG Cap PO SCH ×3 (11:06→23:10)
[2021-04-21] MEDS: Ibuprofen 600 MG Tab PO PRN ×2 (11:36→19:36)
[2021-04-22] MEDS: Ibuprofen 600 MG Tab PO PRN ×4 (04:13→22:39)
[2021-04-22] MEDS: Acetaminophen/oxyCODONE 325-5 MG Tab PO PRN ×3 (06:00→22:40)
--- NOTE | 2021-04-22 08:37 | PCM.PNPP ---
- General Info Date of Service: 04/22/21 Functional Status: Reports: Pain Controlled, Tolerating Diet, Ambulating, Urinating - Review of Systems General: Reports: No Symptoms Pulmonary: Reports: Shortness of Breath Cardiovascular: Reports: Lightheadedness Gastrointestinal: Reports: No Symptoms Genitourinary: Reports: No Symptoms Musculoskeletal: Reports: No Symptoms Systems Review Comment:: Patient feeling a little more SOB today with being up and walking. Hasn't done a long walk yet. Notes feeling lightheaded with prolonged standing - Patient Data Vital Signs - Most Recent: Last Vital Signs Temp 37.4 C 04/22/21 04:06 Pulse 126 H 04/22/21 04:06 Resp 14 04/22/21 04:06 BP 126/67 04/22/21 04:06 Pulse Ox 95 04/22/21 04:06 Weight - Most Recent: 69.4 kg I&O - Last 24 Hours: Intake & Output 04/21/21 04/22/21 04/22/21 22:59 06:59 14:59 Intake Total 240 Balance 240 Med Orders - Current: Current Medications Diphenhydramine HCl (Diphenhydramine 50 Mg/Ml Sdv) 25 mg IVPUSH Q6H PRN PRN Reason: Itching or Nausea Docusate Sodium (Docusate Sodium 100 Mg Cap) 100 mg PO BID [facility] Last Admin: 04/21/21 23:10 Dose: Not Given Documented by: Ephedrine Sulfate (Ephedrine 50 Mg/Ml Sdv) 5 mg IVPUSH SEECOMMENT PRN PRN Reason: Other Oxytocin/Lactated Ringer's (Pitocin In Lr 10 Units/1,000 Ml) 10 unit in 1,000 mls @ 100 mls/hr IV .CONTINUOUS [facility] Ibuprofen (Ibuprofen 600 Mg Tab) 600 mg PO Q6H PRN PRN Reason: mild pain or fever Last Admin: 04/22/21 04:13 Dose: 600 mg Documented by: Magnesium Hydroxide (Magnesium Hydroxide 400 Mg/5 Ml Susp 30 Ml Cup) 30 ml PO BEDTIME PRN PRN Reason: Constipation Naloxone HCl (Naloxone 0.4 Mg/Ml Sdv) 0.1 mg IVPUSH SEECOMMENT PRN PRN Reason: Respiratory Depression Oxycodone/Acetaminophen (Acetaminophen/Oxycodone 325-5 Mg Tab) 1 tab PO Q6H PRN PRN Reason: Pain (moderate 4-6) Last Admin: 04/22/21 06:00 Dose: 1 tab Documented by: Oxycodone/Acetaminophen (Acetaminophen/Oxycodone 325-5 Mg Tab) 2 tab PO Q6H PRN PRN Reason: Pain (severe 7-10) Last Admin: 04/21/21 23:08 Dose: 2 tab Documented by: Prenat Multivit/[place]/Iron/Folic Ac ( Multivitamin With Calcium/Folic Acid/Iron Tab) 1 each PO DAILY [facility] Last Admin: 04/21/21 09:06 Dose: 1 each Documented by: Discontinued Medications Bupivacaine HCl (Bupivacaine 0.5% 30 Ml Sdv) Confirm Administered Dose 30 ml .ROUTE .STK-MED ONE Stop: 04/20/21 10:36 Last Admin: 04/20/21 10:40 Dose: 20 ml Documented by: Cefazolin Sodium (Cefazolin 1 Gm Vial) Confirm Administered Dose 2 gm .ROUTE .STK-MED ONE Stop: 04/20/21 10:05 Citric Acid/Sodium Citrate (Citric Acid/Sodium Citrate Solution 30 Ml Cup) 30 ml PO ONETIME ONE Stop: 04/20/21 09:39 Fentanyl (Fentanyl 100 Mcg/2 Ml Sdv) Confirm Administered Dose 100 mcg .ROUTE .STK-MED ONE Stop: 04/20/21 10:03 Fentanyl (Fentanyl 100 Mcg/2 Ml Sdv) Confirm Administered Dose 100 mcg .ROUTE .STK-MED ONE Stop: 04/20/21 10:14 Fentanyl (Fentanyl 100 Mcg/2 Ml Sdv) 100 mcg IVPUSH Q5M PRN PRN Reason: Pain Hydromorphone HCl (Hydromorphone 0.5 Mg/0.5 Ml Syringe) Confirm Administered Dose 0.5 mg .ROUTE .STK-MED ONE Stop: 04/20/21 10:15 Hydromorphone HCl (Hydromorphone 0.5 Mg/0.5 Ml Syringe) Confirm Administered Dose 0.5 mg .ROUTE .STK-MED ONE Stop: 04/20/21 10:35 Hydromorphone HCl (Hydromorphone 0.5 Mg/0.5 Ml Syringe) 0.5 mg IVPUSH Q10M PRN PRN Reason: Pain (severe 7-10) Oxytocin/Lactated Ringer's (Pitocin In Lr 10 Units/1,000 Ml) 10 unit in 1,000 mls @ 100 mls/hr IV .CONTINUOUS [facility] Oxytocin/Lactated Ringer's (Pitocin In Lr 10 Units/1,000 Ml) 10 unit in 1,000 mls @ 12 mls/hr IV TITRATE [facility]; Protocol Lactated Ringer's (Ringers, Lactated) 1,000 mls @ 100 mls/hr IV ASDIRECTED [facility] Last Admin: 04/20/21 11:00 Dose: 100 mls/hr Documented by: Azithromycin 500 mg/ Sodium (Chloride) 250 mls @ 250 mls/hr IV ONETIME STA Stop: 04/20/21 10:40 Cefazolin Sodium/Dextrose 2 gm (/ Premix) 50 mls @ 100 mls/hr IV ONETIME ONE Stop: 04/20/21 10:12 Lactated Ringer's (Ringers, Lactated) Confirm Administered Dose 1,000 mls @ as directed .ROUTE .STK-MED ONE Stop: 04/20/21 10:17 Dextrose/Lactated Ringer's (Dextrose 5%-Lactated Ringers) 1,000 mls @ 125 mls/hr IV ASDIRECTED [facility] Stop: 04/20/21 20:52 Last Admin: 04/20/21 13:17 Dose: 125 mls/hr Documented by: Ketorolac Tromethamine (Ketorolac 30 Mg/Ml Sdv) 30 mg IVPUSH Q6H [facility] Stop: 04/21/21 02:31 Last Admin: 04/21/21 03:00 Dose: 30 mg Documented by: Metoclopramide HCl (Metoclopramide 10 Mg/2 Ml Sdv) 10 mg IVPUSH ONETIME ONE Stop: 04/20/21 09:39 Midazolam HCl (Midazolam 1 Mg/Ml 2 Ml Sdv) Confirm Administered Dose 2 mg .ROUTE .STK-MED ONE Stop: 04/20/21 10:31 Miscellaneous Medication (Phenylephrine Hcl In 0.9% Nacl 1 Mg/10 Ml Syringe) Confirm Administered Dose 1 mg .ROUTE .STK-MED ONE Stop: 04/20/21 10:12 Miscellaneous Medication (Phenylephrine Hcl In 0.9% Nacl 1 Mg/10 Ml Syringe) Confirm Administered Dose 1 mg .ROUTE .STK-MED ONE Stop: 04/20/21 10:22 Nalbuphine HCl (Nalbuphine 10 Mg/1 Ml Vial) 10 mg IVPUSH Q2H PRN PRN Reason: Pain Ondansetron HCl (Ondansetron 4 Mg/2 Ml Sdv) 4 mg IVPUSH Q4H PRN PRN Reason: Nausea/Vomiting Ondansetron HCl (Ondansetron 4 Mg/2 Ml Sdv) Confirm Administered Dose 8 mg .ROUTE .STK-MED ONE Stop: 04/20/21 10:06 Oxytocin (Oxytocin 10 Units/1 Ml Sdv) Confirm Administered Dose 20 unit .ROUTE .STK-MED ONE Stop: 04/20/21 10:05 Propofol (Propofol 200 Mg/20 Ml Sdv) Confirm Administered Dose 200 mg .ROUTE .STK-MED ONE Stop: 04/20/21 09:55 Sodium Chloride (Sodium Chloride 0.9% 10 Ml Syringe) 10 ml FLUSH ASDIRECTED PRN PRN Reason: Keep Vein Open - Interaction Disposition, : in Room with Family Infant Interaction: Holding Infant Infant Feeding: Attempted ; Nursed Fair/Poor Support Person: Significant Other - Recovery Exam Fundal Tone: Firm Fundal Level: 1 Fingerbreadths Below Umbilicus Fundal Placement: Midline Lochia Amount: Scant Lochia Color: Rubra/Red Perineum Description: Edematous Episiotomy/Laceration: None Bladder Status: Voiding Urinary Elimination: Voided - Exam General: Alert, Oriented, Cooperative Lungs: Clear to Auscultation, Normal Respiratory Effort Cardiovascular: Regular Rate, Regular Rhythm GI/Abdominal Exam: Soft, Tender (appropriate ) Extremities: Normal Inspection Skin: Warm, Dry, Intact Wound/Incisions: Healing Well, No Drainage - Problem List & Annotations (1) S/P primary low transverse SNOMED Code(s): 468675981, 63087765, 696953830, 446215827, 353852440 Code(s): Z98.891 - HISTORY OF UTERINE SCAR FROM PREVIOUS SURGERY Status: Acute Current Visit: Yes (2) Postoperative anemia SNOMED Code(s): 230235839, 456043998 Code(s): D64.9 - ANEMIA, UNSPECIFIED Status: Acute Current Visit: Yes (3) 39 weeks gestation of SNOMED Code(s): 24287837 Code(s): Z3A.39 - 39 WEEKS GESTATION OF Status: Acute Current Visit: Yes (4) Vaginal bleeding in SNOMED Code(s): 66092679819848315 Code(s): O46.90 - ANTEPARTUM HEMORRHAGE, UNSPECIFIED, UNSPECIFIED TRIMESTER Status: Acute Current Visit: Yes - Problem List Review Problem List Initiated/Reviewed/Updated: Yes - My Orders Last 24 Hours: My Active Orders 04/22/21 08:00 CBC W/O DIFF,HEMOGRAM [HEME] Stat - Assessment Assessment:: POD#2 - Plan Plan:: Patient with Hb of 7.7 yesterday, but now more symptomatic today. Repeat done and actually improved to above 8. Will start iron supplementation in house. Will continue on discharge as well Breast/bottle feeding Likely discharge home tomorrow pending Peds assessment of baby
[2021-04-22] MEDS: Prenatal Multivitamin with Calcium/Folic Acid/Iron Tab PO SCH (08:57)
[2021-04-22] MEDS: Docusate Sodium 100 MG Cap PO SCH ×2 (08:57→22:39)
[2021-04-22] MEDS: Ferrous Sulfate 324 MG Tab.EC PO SCH ×2 (10:18→16:35)
[2021-04-23] MEDS: Acetaminophen/oxyCODONE 325-5 MG Tab PO PRN ×2 (02:19→10:00)
--- NOTE | 2021-04-23 07:30 | PCM.DCSUM1 ---
Discharge Summary - Discharge Data Discharge Date: 04/23/21 Discharge Disposition: Home, Self-Care 01 Condition: Good - Referral to Home Health Primary Care Physician: Wesley Mcintyre MD - Discharge Diagnosis/Problem(s) (1) S/P primary low transverse SNOMED Code(s): 479945449, 92740636, 947662182, 049282601, 496269653 ICD Code: Z98.891 - HISTORY OF UTERINE SCAR FROM PREVIOUS SURGERY Status: Acute Current Visit: Yes (2) Postoperative anemia SNOMED Code(s): 164914892, 212425988 ICD Code: D64.9 - ANEMIA, UNSPECIFIED Status: Acute Current Visit: Yes (3) 39 weeks gestation of SNOMED Code(s): 90095808 ICD Code: Z3A.39 - 39 WEEKS GESTATION OF Status: Acute Current Visit: Yes (4) Vaginal bleeding in SNOMED Code(s): 32378077084720982 ICD Code: O46.90 - ANTEPARTUM HEMORRHAGE, UNSPECIFIED, UNSPECIFIED TRIMESTER Status: Acute Current Visit: Yes - Patient Summary/Data Operative Procedure(s) Performed: Emergency section with delivery of Complications: None Consults: None Recommended Follow-up Testing/Procedures: Follow up in 3 weeks Hospital Course: 20 y/o at 39 6/7 wks presented with SROM and then found to have large amount of vaginal bleeding and intolerance concerning for placental abruption. Taken for emergent . See operative note. did well and was discharged home on POD#3 - Patient Instructions Diet: Regular Diet as Tolerated Activity: No Lifting Over 10 Pounds Activity, Other: Pelvic rest for 6 weeks Driving: May Drive Today Showering/Bathing: May Shower, No Tub Bathing/Swimming Wound/Incision Care: Keep Operative Site/Wound Site Clean and Dry Notify Provider of: Fever, Increased Pain, Swelling and Redness, Drainage, Nausea and/or Vomiting - Discharge Plan *PRESCRIPTION DRUG MONITORING PROGRAM REVIEWED*: No *COPY OF PRESCRIPTION DRUG MONITORING REPORT IN PATIENT SURYA: No Prescriptions/Med Rec: Acetaminophen/oxyCODONE [Percocet 325-5 MG] 1 - 2 tab PO Q6H PRN #25 tablet PRN Reason: Pain (Severe 7-10) Home Medications: Home Meds Vit #76/Iron,Carb/Fa [Pnv 29-1 Tablet] 1 each PO DAILY 10/05/19 [History] Acetaminophen/oxyCODONE [Percocet 325-5 MG] 1 - 2 tab PO Q6H PRN #25 tablet 04/21/21 [Rx] Docusate Sodium [Colace] 100 mg PO BID cap 04/21/21 [Rx] Ibuprofen [Motrin] 600 mg PO Q6H PRN tablet 04/21/21 [Rx] Referrals: Wesley Mcintyre MD [Primary Care Provider] - (3 weeks for post op check ) - Discharge Summary/Plan Comment DC Time >30 min.: No Total # of Minutes for Discharge Time: 15 - Patient Data Vitals - Most Recent: Last Vital Signs Temp 36.7 C 04/23/21 03:12 Pulse 105 H 04/23/21 03:12 Resp 14 04/22/21 23:00 BP 115/76 04/23/21 03:12 Pulse Ox 93 L 04/23/21 03:12 Weight - Most Recent: 69.4 kg Lab Results - Last 24 hrs: Laboratory Results - last 24 hr 04/20/21 04/22/21 Range/Units 09:45 08:00 WBC 11.68 H (3.98-10.04) K/mm3 RBC 2.72 L (3.98-5.22) M/mm3 Hgb 8.2 L (11.2-15.7) gm/dl Hct 25.9 L (34.1-44.9) % MCV 95.2 H (79.4-94.8) fl MCH 30.1 (25.6-32.2) pg MCHC 31.7 L (32.2-35.5) g/dl RDW Std Deviation 49.3 H (36.4-46.3) fL Plt Count 143 L (182-369) K/mm3 MPV 11.6 (9.4-12.3) fl Hepatitis C Antibody <0.1 (0.0-0.9) s/co ratio Med Orders - Current: Current Medications Diphenhydramine HCl (Diphenhydramine 50 Mg/Ml Sdv) 25 mg IVPUSH Q6H PRN PRN Reason: Itching or Nausea Docusate Sodium (Docusate Sodium 100 Mg Cap) 100 mg PO BID [facility] Last Admin: 04/22/21 22:39 Dose: 100 mg Documented by: Ephedrine Sulfate (Ephedrine 50 Mg/Ml Sdv) 5 mg IVPUSH SEECOMMENT PRN PRN Reason: Other Ferrous Sulfate (Ferrous Sulfate 324 Mg Tab.Ec) 324 mg PO TIDMEALS [facility] Last Admin: 04/22/21 16:35 Dose: 324 mg Documented by: Oxytocin/Lactated Ringer's (Pitocin In Lr 10 Units/1,000 Ml) 10 unit in 1,000 mls @ 100 mls/hr IV .CONTINUOUS [facility] Ibuprofen (Ibuprofen 600 Mg Tab) 600 mg PO Q6H PRN PRN Reason: mild pain or fever Last Admin: 04/22/21 22:39 Dose: 600 mg Documented by: Magnesium Hydroxide (Magnesium Hydroxide 400 Mg/5 Ml Susp 30 Ml Cup) 30 ml PO BEDTIME PRN PRN Reason: Constipation Last Admin: 04/22/21 22:39 Dose: 30 ml Documented by: Naloxone HCl (Naloxone 0.4 Mg/Ml Sdv) 0.1 mg IVPUSH SEECOMMENT PRN PRN Reason: Respiratory Depression Oxycodone/Acetaminophen (Acetaminophen/Oxycodone 325-5 Mg Tab) 1 tab PO Q6H PRN PRN Reason: Pain (moderate 4-6) Last Admin: 04/23/21 02:19 Dose: 1 tab Documented by: Oxycodone/Acetaminophen (Acetaminophen/Oxycodone 325-5 Mg Tab) 2 tab PO Q6H PRN PRN Reason: Pain (severe 7-10) Last Admin: 04/21/21 23:08 Dose: 2 tab Documented by: Prenat Multivit/[place]/Iron/Folic Ac ( Multivitamin With Calcium/Folic Acid/Iron Tab) 1 each PO DAILY [facility] Last Admin: 04/22/21 08:57 Dose: 1 each Documented by: Discontinued Medications Bupivacaine HCl (Bupivacaine 0.5% 30 Ml Sdv) Confirm Administered Dose 30 ml .ROUTE .STK-MED ONE Stop: 04/20/21 10:36 Last Admin: 04/20/21 10:40 Dose: 20 ml Documented by: Cefazolin Sodium (Cefazolin 1 Gm Vial) Confirm Administered Dose 2 gm .ROUTE .STK-MED ONE Stop: 04/20/21 10:05 Citric Acid/Sodium Citrate (Citric Acid/Sodium Citrate Solution 30 Ml Cup) 30 ml PO ONETIME ONE Stop: 04/20/21 09:39 Fentanyl (Fentanyl 100 Mcg/2 Ml Sdv) Confirm Administered Dose 100 mcg .ROUTE .STK-MED ONE Stop: 04/20/21 10:03 Fentanyl (Fentanyl 100 Mcg/2 Ml Sdv) Confirm Administered Dose 100 mcg .ROUTE .STK-MED ONE Stop: 04/20/21 10:14 Fentanyl (Fentanyl 100 Mcg/2 Ml Sdv) 100 mcg IVPUSH Q5M PRN PRN Reason: Pain Hydromorphone HCl (Hydromorphone 0.5 Mg/0.5 Ml Syringe) Confirm Administered Dose 0.5 mg .ROUTE .STK-MED ONE Stop: 04/20/21 10:15 Hydromorphone HCl (Hydromorphone 0.5 Mg/0.5 Ml Syringe) Confirm Administered Dose 0.5 mg .ROUTE .STK-MED ONE Stop: 04/20/21 10:35 Hydromorphone HCl (Hydromorphone 0.5 Mg/0.5 Ml Syringe) 0.5 mg IVPUSH Q10M PRN PRN Reason: Pain (severe 7-10) Oxytocin/Lactated Ringer's (Pitocin In Lr 10 Units/1,000 Ml) 10 unit in 1,000 mls @ 100 mls/hr IV .CONTINUOUS [facility] Oxytocin/Lactated Ringer's (Pitocin In Lr 10 Units/1,000 Ml) 10 unit in 1,000 mls @ 12 mls/hr IV TITRATE [facility]; Protocol Lactated Ringer's (Ringers, Lactated) 1,000 mls @ 100 mls/hr IV ASDIRECTED [facility] Last Admin: 04/20/21 11:00 Dose: 100 mls/hr Documented by: Azithromycin 500 mg/ Sodium (Chloride) 250 mls @ 250 mls/hr IV ONETIME STA Stop: 04/20/21 10:40 Cefazolin Sodium/Dextrose 2 gm (/ Premix) 50 mls @ 100 mls/hr IV ONETIME ONE Stop: 04/20/21 10:12 Lactated Ringer's (Ringers, Lactated) Confirm Administered Dose 1,000 mls @ as directed .ROUTE .STK-MED ONE Stop: 04/20/21 10:17 Dextrose/Lactated Ringer's (Dextrose 5%-Lactated Ringers) 1,000 mls @ 125 mls/hr IV ASDIRECTED [facility] Stop: 04/20/21 20:52 Last Admin: 04/20/21 13:17 Dose: 125 mls/hr Documented by: Ketorolac Tromethamine (Ketorolac 30 Mg/Ml Sdv) 30 mg IVPUSH Q6H [facility] Stop: 04/21/21 02:31 Last Admin: 04/21/21 03:00 Dose: 30 mg Documented by: Metoclopramide HCl (Metoclopramide 10 Mg/2 Ml Sdv) 10 mg IVPUSH ONETIME ONE Stop: 04/20/21 09:39 Midazolam HCl (Midazolam 1 Mg/Ml 2 Ml Sdv) Confirm Administered Dose 2 mg .ROUTE .STK-MED ONE Stop: 04/20/21 10:31 Miscellaneous Medication (Phenylephrine Hcl In 0.9% Nacl 1 Mg/10 Ml Syringe) Confirm Administered Dose 1 mg .ROUTE .STK-MED ONE Stop: 04/20/21 10:12 Miscellaneous Medication (Phenylephrine Hcl In 0.9% Nacl 1 Mg/10 Ml Syringe) Confirm Administered Dose 1 mg .ROUTE .STK-MED ONE Stop: 04/20/21 10:22 Nalbuphine HCl (Nalbuphine 10 Mg/1 Ml Vial) 10 mg IVPUSH Q2H PRN PRN Reason: Pain Ondansetron HCl (Ondansetron 4 Mg/2 Ml Sdv) 4 mg IVPUSH Q4H PRN PRN Reason: Nausea/Vomiting Ondansetron HCl (Ondansetron 4 Mg/2 Ml Sdv) Confirm Administered Dose 8 mg .ROUTE .STK-MED ONE Stop: 04/20/21 10:06 Oxytocin (Oxytocin 10 Units/1 Ml Sdv) Confirm Administered Dose 20 unit .ROUTE .STK-MED ONE Stop: 04/20/21 10:05 Propofol (Propofol 200 Mg/20 Ml Sdv) Confirm Administered Dose 200 mg .ROUTE .STK-MED ONE Stop: 04/20/21 09:55 Sodium Chloride (Sodium Chloride 0.9% 10 Ml Syringe) 10 ml FLUSH ASDIRECTED PRN PRN Reason: Keep Vein Open
[2021-04-23] MEDS: Docusate Sodium 100 MG Cap PO SCH ×2 (07:57→12:27)
[2021-04-23] MEDS: Ferrous Sulfate 324 MG Tab.EC PO SCH ×2 (07:57→12:32)
[2021-04-23] MEDS: Prenatal Multivitamin with Calcium/Folic Acid/Iron Tab PO SCH ×2 (07:57→12:28)
[2021-04-23] MEDS: Ibuprofen 600 MG Tab PO PRN (07:57)
[2021-04-23] MEDS ORDERED: Polyethylene Glycol 3350 Powder 17 GM Packet PO ONE (08:15)
== END 2021-04-23 12:00 | disposition home or self-care (01) | DRG 786 ==
LOC: JD.OBCHECK 08:57 → JD.OB 08:57 → JD.OBCHECK 09:35 → JD.OB 09:35 → OBSVTOIN 09:59 → JD.OB 10:00
PROVIDERS: ADMIT Obstetrics & Gynecology; ATTEND Obstetrics & Gynecology
PROC: 10D00Z1 Extraction of Products of Conception, Low, Open Approach (ICD-10-PCS; principal; 2021-04-20)
DX: O76 Abnormality in fetal heart rate and rhythm complicating labor and delivery (principal); O45.93 Premature separation of placenta, unspecified, third trimester; O62.2 Other uterine inertia; Z3A.39 39 weeks gestation of pregnancy; Z37.0 Single live birth; D64.9 Anemia, unspecified; O90.81 Anemia of the puerperium; Z20.822 Contact with and (suspected) exposure to COVID-19
CPT/HCPCS: 01961; 36415; 51702; 59025; 85025; 85027; 86592; 86803; 86850; 86900; 86901; 99140; A9270-GY; J0330; J0690; J1170; J1885; J2250; J2370; J2405; J2590; J2704; J3010; J3490; J7120; J7121; U0002

== ENCOUNTER 2022-10-15 04:57 | Inpatient (IN) | payer MEDICAID ==
[2022-10-15] MEDS ORDERED: Sodium Chloride 0.9% 10 ML Syringe FLUSH PRN (05:30)
[2022-10-15] MEDS ORDERED: Lactated Ringers 1,000 ML IV SCH (05:30)
[2022-10-15] MEDS ORDERED: Metoclopramide 10 MG/2 ML SDV IVPUSH ONE (06:30)
[2022-10-15] MEDS ORDERED: Citric Acid/Sodium Citrate Solution 30 ML Cup PO ONE (06:30)
[2022-10-15] MEDS ORDERED: Ketorolac 30 MG/ML SDV ONE (06:43)
[2022-10-15] MEDS ORDERED: ceFAZolin 2 GM Vial ONE (06:43)
[2022-10-15] MEDS ORDERED: Morphine PF 1 MG/ML Amp ONE (06:43)
[2022-10-15] MEDS ORDERED: Ondansetron 4 MG/2 ML SDV ONE (06:43)
[2022-10-15] MEDS ORDERED: Bupivacaine 0.5% 30 ML SDV ONE (06:47)
[2022-10-15] MEDS ORDERED: ceFAZolin 2 GM in Sodium Chloride 0.9% 50 ML IV ONE (07:00)
[2022-10-15] MEDS ORDERED: Phenylephrine HCl In 0.9% NaCl 1 MG/10 ML Vial ONE (07:30)
[2022-10-15] MEDS ORDERED: Oxytocin 10 Units/1 ML SDV ONE (07:50)
[2022-10-15] MEDS ORDERED: diphenhydrAMINE 50 MG/ML SDV IVPUSH PRN ×2 (08:37→09:33)
[2022-10-15] MEDS ORDERED: fentaNYL 100 MCG/2 ML SDV IVPUSH PRN (08:37)
[2022-10-15] MEDS ORDERED: Ondansetron 4 MG/2 ML SDV IVPUSH PRN (08:37)
[2022-10-15] MEDS ORDERED: ePHEDrine 50 MG/ML SDV IVPUSH PRN (09:33)
[2022-10-15] MEDS ORDERED: Acetaminophen/oxyCODONE 325-5 MG Tab PO PRN (09:33)
[2022-10-15] MEDS ORDERED: Dextrose 5%-Lactated Ringers 1,000 ML IV SCH (09:33)
[2022-10-15] MEDS ORDERED: Ondansetron 4 MG/2 ML SDV IV PRN (09:33)
[2022-10-15] MEDS ORDERED: Naloxone 0.4 MG/ML SDV IVPUSH PRN (09:33)
[2022-10-15] MEDS: Docusate Sodium 100 MG Cap PO SCH ×2 (10:41→21:29)
[2022-10-15] MEDS: Prenatal Multivitamin with Calcium/Folic Acid/Iron Tab PO SCH (10:41)
[2022-10-15] MEDS: Simethicone 80 MG Tab.Chew PO SCH ×4 (10:58→21:29)
[2022-10-15] MEDS: Ibuprofen 600 MG Tab PO SCH ×2 (12:43→19:30)
[2022-10-15] MEDS: Acetaminophen/oxyCODONE 325-5 MG Tab PO PRN ×2 (12:43→18:22)
[2022-10-15] MEDS: Ferrous Sulfate 324 MG Tab.EC PO SCH (18:22)
[2022-10-16] MEDS: Acetaminophen/oxyCODONE 325-5 MG Tab PO PRN ×5 (02:44→23:10)
[2022-10-16] MEDS: Ibuprofen 600 MG Tab PO SCH ×4 (02:47→20:16)
[2022-10-16] MEDS: Simethicone 80 MG Tab.Chew PO SCH ×3 (09:11→20:16)
[2022-10-16] MEDS: Docusate Sodium 100 MG Cap PO SCH ×2 (09:11→20:16)
[2022-10-16] MEDS: Prenatal Multivitamin with Calcium/Folic Acid/Iron Tab PO SCH (09:11)
[2022-10-16] MEDS: Ferrous Sulfate 324 MG Tab.EC PO SCH ×2 (09:14→18:58)
[2022-10-17] MEDS: Ibuprofen 600 MG Tab PO SCH ×2 (02:06→08:41)
[2022-10-17] MEDS: Acetaminophen/oxyCODONE 325-5 MG Tab PO PRN (04:13)
[2022-10-17] MEDS: Simethicone 80 MG Tab.Chew PO SCH (08:40)
[2022-10-17] MEDS: Prenatal Multivitamin with Calcium/Folic Acid/Iron Tab PO SCH (08:40)
[2022-10-17] MEDS: Docusate Sodium 100 MG Cap PO SCH (08:40)
[2022-10-17] MEDS: Ferrous Sulfate 324 MG Tab.EC PO SCH (08:41)
== END 2022-10-17 11:40 | disposition home or self-care (01) | DRG 787 ==
LOC: UNDOADMIN 04:57 → JD.OB 04:57
PROVIDERS: ADMIT Obstetrics & Gynecology; ATTEND Obstetrics & Gynecology
PROC: 10D00Z1 Extraction of Products of Conception, Low, Open Approach (ICD-10-PCS; principal; 2022-10-15)
DX: O34.211 Maternal care for low transverse scar from previous cesarean delivery (principal); D62 Acute posthemorrhagic anemia; Z3A.39 39 weeks gestation of pregnancy; Z37.0 Single live birth; O69.81X0 Labor and delivery complicated by cord around neck, without compression, not applicable or unspecified; O99.02 Anemia complicating childbirth
CPT/HCPCS: 01961; 36415; 59025; 85025; 86592; 86850; 86900; 86901; 94762; A9270-GY; J0690; J1885; J2274; J2405; J2590; J2765; J3490; J7120; J7121